=== PATIENT | female | born 1955 | race Caucasian/White ===

== ENCOUNTER 2019-05-11 09:15 | Inpatient (IN) | payer OTHER ==
[~2019-05-11 09:15] MED LIST: Lactated Ringers 1000 ML Bag* 1,000 ML IV SCH
--- OUTSIDE RECORDS SUMMARY | 2019-05-11 09:40 | XMS REPORT | Summary of Care ---
:1955 Author Organization [facility] Address [address] [place] [address] Care Team Providers Name Role Phone None, Greer Primary Care Provider Unavailable Reason for Visit Reason Comments Pre-op Exam Total left knee replacement 05/11/2019 Encounter Details Date Type Department Care Team Description 04/22/2019 Office Visit Otoniel Martinez Preop cardiovascular exam (Primary Dx); Practice DO Ron Hypothyroidism, unspecified type [address] [place] [id number] [place] [address] [phone] Allergies Active Allergy Reactions Severity Noted Date Comments Environmental Respiratory Reaction 07/26/2008 Moles, posion gurinder Latex Rash 03/15/2010 Penicillins Anaphylaxis, Hives 07/02/2008 Brinzolamide-Brimonidine Other 08/31/2014 Blurred vision/redness/ documented as of this encounter (statuses as of 04/24/2019) Medications Medication Sig Dispensed Refills Start Date End Date Status VITAMIN-B COMPLEX PO Take 1 Tab by 0 Active mouth DAILY. KAOPECTATE STOOL Take 240 mg by 0 Active SOFTENER 240 MG Oral mouth EVERY Cap BEDTIME. Multiple Take by mouth 0 Active Vitamins-Minerals (EYE EVERY THREE DAYS. VITAMINS) Oral Tab fluticasone (FLONASE) Cucumber 1 Cucumber in 1 Bottle 0 08/05/2013 Active 50 MCG/ACT Nasal nose TWICE DAILY. SuspensionIndications: Allergic sinusitis Additional information Patient taking differently: 1 Cucumber Nasal PRN, Reported on 02/09/2015 9:51 AM VITAMIN A PO Take by mouth. 0 Active latanoprost (XALATAN) Place 2 Drops to 0 10/16/2015 Active 0.005 % Ophthalmic the external eye. Solution Aspirin 81 MG Oral Tab Take 81 mg by mouth 0 Active DAILY. influenza virus vaccine Inject 0.5 mL 1 vial 0 07/29/2017 Active (FLUZONE) Intramuscular within a muscle ONE SuspensionIndications: TIME. Need for influenza vaccination influenza virus vaccine Inject 0.5 mL 1 vial 0 07/29/2017 Active (FLUZONE) Intramuscular within a muscle ONE SuspensionIndications: TIME. Need for influenza vaccination fexofenadine (OSMEL) Take 1 Tab by mouth 90 Tab 0 09/27/2017 Active 180 MG Oral DAILY. TabIndications: Allergic state, subsequent encounter Diclofenac Sodium 1 % 1 Appl by Topical 100 g 2 09/27/2017 Active Transdermal Gel route TWO TIMES DAILY NEEDED (leg pain). levothyroxine Take 1 Tab by mouth 90 Tab 1 09/27/2017 Active (SYNTHROID) 88 MCG Oral BEFORE BREAKFAST. TabIndications: Hypothyroidism, unspecified type Ezetimibe (ZETIA PO) Take 5 mg by mouth 0 Active DAILY. timolol (TIMOPTIC) 0.5 % 1 Drop TWICE DAILY. 0 Active Ophthalmic Solution benzonatate (TESSALON Take 1 Cap by mouth 42 Cap 0 02/27/2018 04/22/2019 Discontinued PERLES) 100 MG Oral THREE TIMES DAILY. CapIndications: Acute bacterial bronchitis guaiFENesin-codeine Take 10 mL by mouth 240 mL 0 02/27/2018 04/22/2019 Discontinued (ROBITUSSIN AC) 100-10 EVERY FOUR HOURS MG/5ML Oral NEEDED (at night SolutionIndications: for cough). Max Acute bacterial Daily Amount: 60 bronchitis mL. levothyroxine TAKE 1 TABLET BY 90 Tab 1 04/14/2018 04/22/2019 Discontinued (SYNTHROID\\UNITHROID) MOUTH BEFORE 100 MCG Oral BREAKFAST. TabIndications: Hypothyroidism, unspecified type documented as of this encounter (statuses as of 04/24/2019) Active Problems Problem Noted Date Neuropathy 09/29/2017 RLS (restless legs syndrome) 03/06/2017 Left leg pain 04/20/2015 Pain in joint, shoulder region 08/31/2014 Back pain 07/09/2014 Pain in joint, upper arm 06/16/2014 Neck pain on left side 05/27/2014 Pain in joint, lower leg 01/25/2014 Knee pain, left 11/05/2013 Lateral meniscus tear 11/05/2013 Chest pain, unspecified 07/27/2008 Unspecified hypothyroidism 07/02/2008 Overview: TSH 0.90 11/27/07 Glaucoma left eye 07/02/2008 Injury, other and unspecified, knee, leg, ankle, and foot 08/28/2007 Other disorder of optic nerve 02/04/2007 Pain in joint, pelvic region and thigh 05/02/2006 documented as of this encounter (statuses as of 04/24/2019) Resolved Problems Problem Noted Date Resolved Date 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 Hennsesy, Dx PE, DVT, target INR range 2.0-3.0, therapy initiated on 02/03/14, duration of therapy unknown Anticoagulant Warfarin Labs WNL Medications hydrocodone and synthroid. Referral INR range updated verbally by Dr Lowry at Pulmonary embolism on right 02/03/2014 04/24/2019 DVT (deep venous thrombosis) 02/03/2014 04/24/2019 Abdominal pain, epigastric 07/27/2008 08/05/2013 Other and unspecified noninfectious gastroenteritis and 07/27/2008 03/12/2013 colitis(558.9) Campylobacter enteritis 07/05/2008 03/12/2013 Fever, unspecified 07/02/2008 07/04/2008 Abdominal pain, unspecified site 07/02/2008 03/12/2013 Overview: Dog with dysentery Pancolitis 07/02/2008 08/05/2013 Overview: CT on 07/02/2008 Growing campylobacter Unspecified accident 08/28/2007 08/05/[address] occurrence 08/28/2007 08/05/2013 Unspecified visual loss 07/23/2006 09/29/2017 Other screening mammogram 02/24/2004 08/05/2013 documented as of this encounter (statuses as of 04/24/2019) Immunizations Name Administration Dates Next Due Influenza (IM) Preservative Free 07/29/2017, 07/27/2008 Influenza (IM) W/Pres 06/29/2014 Kenalog (80 mg) 05/04/2015 documented as of this encounter Social History Tobacco Use Types Packs/Day Years Used Date Never Smoker Smokeless Tobacco: Never Used Alcohol Use Drinks/Week oz/Week Comments Yes 0 Standard drinks or equivalent 0.0 2 glasses wine with dinner daily Sex Assigned at Date Recorded Not on file Job Start Date Occupation Industry Not on file Not on file Not on file Travel History Travel Start Travel End No recent travel history available. documented as of this encounter Last Filed Vital Signs Vital Sign Reading Time Taken Comments Blood Pressure 124/72 04/22/2019 3:21 PM EDT Pulse 66 04/22/2019 3:21 PM EDT Temperature 37.1 04/22/2019 3:21 PM C (98.7 EDT F) Respiratory Rate 16 04/22/2019 3:21 PM EDT Oxygen Saturation 97% 04/22/2019 3:21 PM EDT Inhaled Oxygen Concentration - - Weight 67.5 kg (148 lb 14.4 oz) 04/22/2019 3:21 PM EDT Height - - Body Mass Index 25.56 07/29/2017 8:55 AM EST documented in this encounter Patient Instructions Patient InstructionsOtoniel Dean DO - 04/22/2019 3:00 PM EDT- Please go to the lab on [address] for the blood work we discussed during your visit today. - I will fax your lab results, my visit note, and the EKG to Dr Hart's office once the lab valuesreturn. documented in this encounter Progress Notes Alireza Varghese DO - 04/22/2019 [facility] Supervising DO Documentation Date of Service: 04/22/2019 B# [id number] I saw and evaluated the patient. Discussed with resident and agree with the resident's findings andplan as documented in the resident's note. Here for medical clearance for knee replacement. Advised we don't do clearance but risk stratification. Decision for surgery needs to be made between the surgeon and patient. Patient higher risk forDVT/PE given prior DVT following surgery in the past. Not currently on anticoagulation. Alireza Varghese DO Supervising Physician Department of Family Medicine Otoniel Jones, DO - 04/22/2019 3:00 PM EDT PATIENT: Naomi Villeda : 1955 DATE OF SERVICE: 04/22/2019 SUBJECTIVE: Naomi Villeda is a 63-y.o. female who presents to the office today for a preoperative consultation at the request of Dr Pineda of [facility], who will perform a Total Knee Replacement on [id number]. Patient complains of cardiac symptoms: none, fatigue. Patient denies cardiac symptoms: none, fatigue. Past history of pulmonary embolism/deep vein thrombosis: Yes.- DVT leading to PE in 2013 with previous L knee surgical procedures. There is a history of bleeding complications: no Past history of anesthetic problem: no. Exercise capacity: Can you walk 2 blocks on level ground, or carry 2 bags of groceries up 2 flights of stairs? Yes- has difficulty with stairs due to knee pain. Count the number of risk factors in the revised Arroyo cardiac risk index. ( RCRI): No High risk procedure: eg vascular surgery, any open intraperitoneal or intrathoracic No History of ischemic heart disease (history of TX or a positive exercise test , current complaint of chest pain considered to be secondary to myocardial ischemia, use of nitrate therapy, or ECG with pathological Q waves; do not count prior coronary revascularization procedure unless one of the other criteria for ischemic heart disease is present) No Hx of CHF, either systolic or diastolic No History of cerebrovascular disease (TIA or Stroke) No Diabetes mellitus requiring treatment with insulin No Preoperative serum creatinine >2.0 mg/dl The risk of cardiac , nonfatal myocardial infarction, and nonfatal cardiac arrest according to the number of above risk predictors is estimated to be: No risk factors - 0.4 percent (95% CI: 0.1 - 0.8) Screening for sleep apnea: Stop-Bang Snoring: Do you snore loudly (louder than talking or heard through closed doors )? X Tired: Do you often feel tired, fatigued, or sleepy during the day? Observed: Has anyone observed you stop breathing during your sleep? Pressure: Do you have or are you being treated for high blood pressure? BMI: >35 kg/m2? X Age: >50? Neck circumference: >40 cm? Gender: Male? "Low risk" for EDEN: <3 questions "yes" Screening for Alzheimer's 1. During the past 12 months, have you experienced confusion or memory loss that is happening more often or is getting worse? No 2. During the past 7 days, did you need help with others to perform everyday activities such as eating, getting dressed, grooming, bathing, walking, or using the toilet? No 3. During the past 7 days, did you need help from others to take care of things such as laundry and housekeeping, banking, shopping, using the telephone, food preparation, transportation, or taking your own medications? No Current active problems are: Patient Active Problem List Diagnosis Date Noted Neuropathy 09/29/2017 RLS (restless legs syndrome) 03/06/2017 Left leg pain 04/20/2015 Pain in joint, shoulder region 08/31/2014 Back pain 07/09/2014 Pain in joint, upper arm 06/16/2014 Neck pain on left side 05/27/2014 Pulmonary embolism on right ([facility]) 02/03/2014 DVT (deep venous thrombosis) ([facility]) 02/03/2014 Pain in joint, lower leg 01/25/2014 Knee pain, left 11/05/2013 Lateral meniscus tear 11/05/2013 Chest pain, unspecified 07/27/2008 Unspecified hypothyroidism 07/02/2008 TSH 0.90 11/27/07 Glaucoma left eye 07/02/2008 Injury, other and unspecified, knee, leg, ankle, and foot 08/28/2007 Other disorder of optic nerve 02/04/2007 Pain in joint, pelvic region and thigh 05/02/2006 Past Medical History: Diagnosis Date Adverse exposure in workplace Closed fracture dislocation of ankle joint Disorder of function of stomach DVT (deep venous thrombosis) ([facility]) 01/2014 Foot fracture Glaucoma left eye 07/02/2008 Nulliparity Postmenopausal Unspecified hypothyroidism 07/02/2008 TSH 0.90 11/27/07 Family History Problem Relation Age of Onset Heart Father CABG x 4 High Cholesterol Father Thyroid Father Arthritis Mother Heart Mother ischemic, High Cholesterol Mother Stroke Mother Heart Brother High Cholesterol Brother Current Outpatient Medications Medication Sig Aspirin 81 MG Oral Tab Take 81 mg by mouth DAILY. benzonatate (TESSALON PERLES) 100 MG Oral Cap Take 1 Cap by mouth THREE TIMES DAILY. Diclofenac Sodium 1 % Transdermal Gel 1 Appl by Topical route TWO TIMES DAILY NEEDED (leg pain). fexofenadine (OSMEL) 180 MG Oral Tab Take 1 Tab by mouth DAILY. fluticasone (FLONASE) 50 MCG/ACT Nasal Suspension Cucumber 1 Cucumber in nose TWICE DAILY. (Patienttaking differently: Cucumber 1 Cucumber in nose NEEDED.) guaiFENesin-codeine (ROBITUSSIN AC) 100-10 MG/5ML Oral Solution Take 10 mL by mouth EVERY FOUR HOURS NEEDED (at night for cough). Max Daily Amount: 60 mL. influenza virus vaccine (FLUZONE) Intramuscular Suspension Inject 0.5 mL within a muscle ONE TIME. influenza virus vaccine (FLUZONE) Intramuscular Suspension Inject 0.5 mL within a muscle ONE TIME. KAOPECTATE STOOL SOFTENER 240 MG Oral Cap Take 240 mg by mouth EVERY BEDTIME. latanoprost (XALATAN) 0.005 % Ophthalmic Solution Place 2 Drops to the external eye. levothyroxine (SYNTHROID) 88 MCG Oral Tab Take 1 Tab by mouth BEFORE BREAKFAST. levothyroxine (SYNTHROID\\UNITHROID) 100 MCG Oral Tab TAKE 1 TABLET BY MOUTH BEFORE BREAKFAST. Multiple Vitamins-Minerals (EYE VITAMINS) Oral Tab Take by mouth EVERY THREE DAYS. VITAMIN A PO Take by mouth. VITAMIN-B COMPLEX PO Take 1 Tab by mouth DAILY. No current facility-administered medications for this visit. Allergies Allergen Reactions Environmental Respiratory Reaction Moles, posion gurinder Latex Rash Penicillins Anaphylaxis and Hives Simbrinza [Brinzolamide-Brimonidine] Other Blurred vision/redness/ Social History Socioeconomic History Marital status: Spouse name: Not on file Number of children: Not on file Years of education: Not on file Highest education level: Not on file Occupational History Not on file Social Needs Financial resource strain: Not on file Food insecurity: Worry: Not on file Inability: Not on file Transportation needs: Medical: Not on file Non-medical: Not on file Tobacco Use Smoking status: Never Smoker Smokeless tobacco: Never Used Substance and Sexual Activity Alcohol use: Yes Alcohol/week: 0.0 standard drinks Comment: 2 glasses wine with dinner daily Drug use: No Sexual activity: Yes Partners: Male Lifestyle Physical activity: Days per week: Not on file Minutes per session: Not on file Stress: Not on file Relationships Social connections: Talks on phone: Not on file Gets together: Not on file Attends yazdanism service: Not on file Active member of club or organization: Not on file Attends meetings of clubs or organizations: Not on file Relationship status: Not on file Intimate partner violence: Fear of current or ex partner: Not on file Emotionally abused: Not on file Physically abused: Not on file Forced sexual activity: Not on file Other Topics Concern Back Care Not Asked Bike Helmet Not Asked Blood Transfusions Not Asked Caffeine Concern Not Asked Exercise Not Asked Hobby Hazards Not Asked International Travel Not Asked Service Not Asked Occupational Exposure Not Asked Seat Belt Not Asked Self-Exams Not Asked Sleep Concern Not Asked Special Diet Not Asked Stress Concern Not Asked Weight Concern Not Asked Social History Narrative 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 Patient is . Husb killed in accident. 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 REVIEW OF SYSTEMS: All remaining review of systems was negative. The patient has dentures: No The last dental visit was: 2 years ago The patient has hearing aids: No Objective OBJECTIVE: [facility] 08/24/2008 GENERAL: alert, cooperative, no distress, appears stated age. SKIN: normal and no rash or abnormalities. EYES: conjunctivae/corneas clear. Pupils equal, round, reactive to light. Equal ocular movements intact. Fundi benign.. MOUTH: moist mucous membranes, no lesions. Mallampati score: 3 LYMPH NODES: cervical, nodes normal.. LUNGS: clear to auscultation bilaterally. HEART: regular rate and rhythm, S1, S2 normal, no murmur, click, rub or gallop. ABDOMEN: soft, non-tender. Bowel sounds normal. No masses, no organomegaly. FLANK TENDERNESS: absent. BREAST: Not indicated- pt without complaints to warrant exam. RECTAL: Not indicated- pt without complaints to warrant exam. EXTREMITIES: extremities normal, atraumatic, no cyanosis or edema. NEUROLOGIC: alert, oriented x3. Gait normal. Reflexes and motor strength normal and symmetric. Cranial nerves 2-12 and sensation grossly intact.. PSYCHIATRIC: non focal. ASSESSMENT: No contraindications to planned surgery Hypothyroidism Clinical predictors: The RCRI score is: 0 Respiratory risk: The patient has pre-existing risks of None The risk of airway problems is low based on the mallampati score and the Stop-bang score. Anticoagulation: The patient is on anti-platelet agents- Aspirin. Recommendations regarding stoppingthese medications before surgery: Pt has already stopped using aspirin since prior to this visit. PLAN: 1. Patient requires endocarditis prophylaxis: no. 2. Recommend perioperative beta-cody: no. 3. Patient requires perioperative deep vein thrombosis prophylaxis: yes. 4. General preoperative instructions for patient. Proceed with surgery as planned. No food or liquids the morning of surgery. Call surgeon if develop respiratory illness, fever, or other illness. Letter sent to requesting surgeon listed above. Written preoperative instructions given. Will obtain lab screening for thyroid status: TSH, FT4, BMP Patient seen and discussed with Dr. Varghese, who agreed with this assessment and plan. Duane Dean DO Family Medicine 04/22/2019 09:55 documented in this encounter Plan of Treatment Name Type Priority Associated Diagnoses Order Schedule AMBULATORY 12 LEAD EKG EKG Routine Preop cardiovascular exam Ordered: 04/22 TRACING ONLY Health Maintenance Due Date Last Done Comments MEDICARE ANNUAL WELLNESS 1955 VISIT ZOSTER IMMUNIZATION SERIES 2006 (1 of 2) MAMMOGRAM (SCREENING) 03/04/2015 03/04/2014, 2013, 01/25/2011, Additional history exists DEPRESSION SCREENING 06/01/2015 06/01/2014 PAP SMEAR 08/05/2016 08/05/2013, 10/09/2010 (Postponed), 08/18/2009, Additional history exists COLONOSCOPY SCREENING 08/26/2018 08/26/2013, 08/26/2013, 08/24/2008, Additional history exists INFLUENZA VACCINE (#1) 2019 07/29/2017, 06/29/2014, 07/27/2008 DIABETES SCREENING 04/22/2020 04/22/2019, 02/07/2017, 01/18/2016, Additional history exists LIPID DISORDER SCREENING 02/07/2022 02/07/2017, 07/31/2013, 12/13/2011, Additional history exists HEPATITIS C SCREENING Completed 02/04/2014 HPV IMMUNIZATION SERIES Aged Out No longer eligible based on patient's age to complete this topic MENINGOCOCCAL VACCINE IMM Aged Out No longer eligible based on patient's age to complete this topic PNEUMOCOCCAL 0-64 YRS Aged Out No longer eligible based on patient's age to complete this topic documented as of this encounter Implants Implanted Type Area Banquet Pilot Device Shelf Model / Serial Identifier Expiration Date / Lot Iol, [id number] 20.0 Diopter - [id number] Left: Eye STORZ 06/16/2014 [id number] -20.0D / Implanted: Qty: 1 on 03/06/2010 at [facility] [id number] / documented as of this encounter Results FREE T4 (04/22/2019 4:48 PM EDT) Free T4 1.5 0.8 - 2.2 NG/DL [facility] Specimen Blood Performing Organization Address [facility] Phone Number [facility] [address] [place] [address] THYROID STIMULATING HORMONE (04/22/2019 4:48 PM EDT) TSH 2.12 0.47 - 4.68 uIu/ml [facility] Specimen Blood Performing Organization Address [facility] Phone Number [facility] [address] [place] [address] [phone] BASIC METABOLIC PANEL (04/22/2019 4:48 PM EDT) Glucose 87 70 - 99 mg/dl [facility] BUN 10 7 - 17 mg/dl [facility] Creatinine 0.7 0.7 - 1.2 mg/dl [facility] Sodium 138 134 - 145 mmol/L [facility] Potassium 4.3 3.5 - 5.1 mmol/L [facility] Chloride 101 98 - 107 mmol/L [facility] CO2 27 22 - 30 mmol/L [facility] Calcium 9.9 8.3 - 10.1 mg/dl [facility] eGFR >60 See Interpretation [facility] Comment: Below ml/min/1.73ml [facility] Estimated GFR Interpretation: Above 60ml/min/1.73m2 = Normal Renal Function 30-59 ml/min/1.73m2 = Stage 3 Chronic Kidney Disease 15-29 ml/min/1.73m2 = Stage 4 Chronic Kidney Disease Less than 15 ml/min/1.73m2 = Stage 5 Chronic Kidney Disease The GFR value is calculated using the Modification of Diet in Renal Disease ( MDRD) Study Equation which can be found at: https://www.kidney.org/content/fpgi-kueym-uskmidtv BUN/Creatinine 14 6 - 22 RATIO [facility] Anion Gap 10 3 - 11 mmol/L [place] [employer] [place] [facility] Specimen Blood Performing Organization Address City/State/Zipcode Phone Number [place] [employer] [place] [facility] [address] [place] [address] [phone] documented in this encounter Visit Diagnoses Diagnosis Preop cardiovascular exam - Primary Pre-operative cardiovascular examination Hypothyroidism, unspecified type documented in this encounter Insurance Payer Benefit Plan / Subscriber ID Effective Dates Phone Address Type Group EXCELLUS MEDICARE EXCELLUS xxxxxxxxxxxx 2017-Present 3SP Group [employer] MEDICARE BLUE PPO [phone]) Guarantor Name Account Type Relation to Date of Phone Billing Patient Address Naomi Villeda Personal/Family 1955 [phone] [id number] [phone] [place], [place] (Work) [address] documented as of this encounter Advance Directives Code Status Date Activated Date Inactivated Comments Full Code 07/02/2008 2:18 PM 07/05/2008 4:58 PM
--- OUTSIDE RECORDS SUMMARY | 2019-05-11 09:40 | XMS REPORT | Continuity of Care Document ---
:1955 External Reference #:[id number] Author Name Michael Hart M.D. (transmitted by agent of provider Lisbet Noe) Address [address] [place] [address] [place] [address] Care Team Providers Name Role Phone Alireza Varghese MD - Family Medicine Care Team Information [employer] [phone] Problems Active Problems Provider Date Peripheral tear of lateral meniscus, current Michael Hart M.D. Onset: injury, right knee, subsequent encounter Sciatica Michael Hart M.D. Onset: 08/18/2015 Spinal stenosis of lumbar region Nic Mclaughlin M.D. Onset: 10/12/2015 Complex tear of lateral meniscus, current Michael Hart M.D. Onset: 2015 injury, right knee, subsequent encounter Chondromalacia Michael Hart M.D. Onset: 06/15/2016 Enthesopathy of knee Michael Hart M.D. Onset: 10/11/2016 [place] Michael Hart M.D. Onset: 10/11/2016 Localized, secondary osteoarthritis Michael Hart M.D. Onset: 12/25/2016 Social History Type Date Description Comments Sex Unknown ETOH Use Occasionally consumes alcohol Tobacco Use Start: Unknown Patient has never smoked Recreational Drug Use Denies Drug Use Smoking Status Reviewed: 04/21/19 Patient has never smoked Exercise Type/Frequency Exercises rarely Allergies, Adverse Reactions, Alerts Active Allergies Reaction Severity Comments Date Penicillin 06/14/2015 Latex 04/11/2016 Mole 10/11/2016 Medications Active Medications SIG Qnty Indications Ordering Provider Date Cipro 1 by mouth twice 6tabs Vane Hui, 04/30/2019 500mg Tablets a day x 3 days M.D. Voltaren apply 2 grams to 500gm Michael Hart, 08/07/2016 1% Gel affected areas M.DMayra twice a day as needed Levothyroxine Sodium 1 by mouth every Unknown day 88MCQ Tablets Latanoprost 1 drop each eye Unknown 0.005% nightly Solution Naproxen 1 tablet with Unknown 500mg Tablets food by mouth twice a day Timolol Maleate 1 drop right eye Unknown 0.5% twice a day (Daily) Solution Zetia 1/2 by mouth Unknown 10mg Tablets every day Omeprazole 1 by mouth every Unknown 40mg Capsules day DR Mohamud Allergy 1 by mouth every Unknown 60mg day Tablets Medications Administered in Office Medication SIG Qnty Indications Ordering Provider Date Depomedrol 80MG Michael Hart M.D. 07/14/2015 Injection Immunizations Description No Information Available Vital Signs Date Vital Result Comment 04/21/2019 3:48pm Height 64.5 inches 5'4.50" Weight 153.38 lb Heart Rate 65 /min BP Systolic Sitting 124 mmHg BP Diastolic Sitting 62 mmHg Respiratory Rate 16 /min Body Temperature 98.4 F Pain Level 98 BMI (Body Mass Index) 25.9 kg/m2 04/07/2019 9:40am Height 64.5 inches 5'4.50" Weight 157.00 lb Heart Rate 74 /min BP Systolic Sitting 128 mmHg BP Diastolic Sitting 84 mmHg Body Temperature 98.0 F BMI (Body Mass Index) 26.5 kg/m2 Results Test Date Facility Test Result H/L Range Note CBC Auto 04/28/2019 [facility] White Blood 4.3 10^3/uL Normal 3.5-10.[address] [place] [address] [phone] Red Blood Count 4.49 10^6/uL Normal 3.70-4.87 Hemoglobin 14.1 g/dL Normal 12.0-16.0 Hematocrit 42 % Normal 35-47 Mean Corpuscular Volume 94 fL Normal 80-97 Mean Corpuscular Hemoglobin 31 pg Normal 27-31 Mean Corpuscular HGB Conc 34 g/dL Normal 31-36 Red Cell Distribution Width 13 % Normal 10-15 Platelet Count 333 10^3/uL Normal 150-450 Mean Platelet Volume 6.8 fL Low 7.4-10.4 Abs Neutrophils 2.3 10^3/uL Normal 1.5-7.7 Abs Lymphocytes 1.4 10^3/uL Normal 1.0-4.8 Abs Monocytes 0.5 10^3/uL Normal 0-0.8 Abs Eosinophils 0.1 10^3/uL Normal 0-0.6 Abs Basophils 0.0 10^3/uL Normal 0-0.2 Abs Nucleated RBC 0.0 10^3/uL Granulocyte % 52.4 % Lymphocyte % 32.4 % Monocyte % 12.0 % Eosinophil % 2.4 % Basophil % 0.8 % Nucleated Red Blood Cells % 0.1 Inr/Protime 04/28/2019 [facility] Inr 1.00 Normal 0.82-1.[address] [place] [address] [phone] Laboratory test 04/28/2019 [facility] Partial 28.6 Normal 26.0 -38.[address] [address] Time PTT [phone] Comp Metabolic 04/28/2019 [facility] Sodium 139 mmol/L Normal 135-[address] [place] [address] [phone] Potassium 4.4 mmol/L Normal 3.5-5.0 Chloride 104 mmol/L Normal 101-111 Co2 Carbon Dioxide 29 mmol/L Normal 22-32 Anion Gap 6 mmol/L Normal 2-11 Glucose 91 mg/dL Normal 70-100 Blood Urea Nitrogen 11 mg/dL Normal 6-24 Creatinine 0.71 mg/dL Normal 0.51-0.95 BUN/Creatinine Ratio 15.5 Normal 8-20 Calcium 9.9 mg/dL Normal 8.6-10.3 Total Protein 7.1 g/dL Normal 6.4-8.9 Albumin 4.7 g/dL Normal 3.2-5.2 Globulin 2.4 g/dL Normal 2-4 Albumin/Globulin Ratio 2.0 Normal 1-3 Total Bilirubin 0.90 mg/dL Normal 0.2-1.0 Alkaline Phosphatase 43 U/L Normal 34-104 Alt 16 U/L Normal 7-52 Ast 22 U/L Normal 13-39 Egfr Non- 83.4 >60 Egfr 100.9 >60 2 Type & Screen 04/28/2019 [facility] Patient Blood Type A Negative [address] [place] [address] [phone] Antibody Screen NEGATIVE Urinalysis Profile 04/28/2019 [facility] Urine Color Yellow [address] [place] [address] [phone] Urine Appearance Clear Urine Specific [place] 1.006 Low 1.010-1.030 Urine pH 7.0 Normal 5-9 Urine Urobilinogen Negative Negative Urine Ketones Negative Negative Urine Protein Negative Negative Urine Leukocytes Trace Abnormal Negative Urine Blood 1+ Abnormal Negative Urine Nitrite Negative Negative Urine Bilirubin Negative Negative Urine Glucose Negative Negative Urine White Blood Cell Trace(0-5/hpf) Absent Urine Red Blood Cell Trace(0-2/hpf) Absent Urine Bacteria Absent Absent Urine Squamous Epithelial Cell Present Abnormal Absent Urine Culture And 04/28/2019 [facility] Urine Culture SEE RESULT [address] [place] [address] [phone] 1 Standard intensity warfarin therapeutic range: 2.0-3.0 High intensity warfarin therapeutic range: 2.5-3.5 2 Because ethnic data is not always readily available, this report includes an eGFR for both -Americans and non- Americans. The National Kidney Disease Education Program (NKDEP) does not endorse the use of the MDRD equation for patients that are not between the ages of 18 and 70, are , have extremes of body size, muscle mass, or nutritional status, or are non- or non-. According to the National Kidney Foundation, irrespective of diagnosis, the stage of the disease is based on the level of kidney function: Stage Description GFR(mL/min/1.73 m(2)) 1 Kidney damage with normal or decreased GFR 90 2 Kidney damage with mild decrease in GFR 60-89 3 Moderate decrease in GFR 30-59 4 Severe decrease in GFR 15-29 5 Kidney failure <15 (or dialysis) 3 SEE RESULT BELOW Name: DOLORES WEST : [address]: Michael Hart MD Acct: [id number] Unit: [id number] AGE: 63 Location: [facility] Re04/28/19 SEX: F Status: REG REF SPEC: [id number] MADONNA: 04/28/19-[address]: Michael Hart MD REQ: [id number] RECD: 04/28/19-1037 STATUS: COMP JENISE DR: BIRD ALAMO MD _ SOURCE: URINE SPDESC: ORDERED: Urine Culture QUERIES: Urine Source: Random Procedure Result Reported Site Urine Culture Final 04/29/19- 1207 ML No Growth (<1,000 CFU/mL) * - Main Lab . END OF REPORT DEPARTMENT OF PATHOLOGY, [address] [place] [address] Galileo Wright M.D. 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 post-traumatic AT [place] osteoarthritis of knee M79.2 Neuralgia and neuritis, unspecified Office Visit 12/04/2018 [facility] Michael Espinoza.2 Bilateral 9:30a [facility] M.[facility] post-traumatic AT [place] osteoarthritis of knee M76.32 Iliotibial band syndrome, left leg Assessments Date Code Description Provider 04/21/2019 M17.32 Unilateral post-traumatic osteoarthritis, left Michael Hart M.D. knee 04/17/2019 M17.12 Unilateral primary osteoarthritis, left knee Michael Hart M.D. 04/07/2019 M17.32 Unilateral post-traumatic osteoarthritis, left Michael Hart M.D. knee 03/10/2019 M17.2 Bilateral post-traumatic osteoarthritis of Michael Hart M.D. knee 03/10/2019 M17.32 Unilateral post-traumatic osteoarthritis, left Michael Hart M.D. knee 02/03/2019 M17.2 Bilateral post-traumatic osteoarthritis of Michael Hart M.D. knee 02/03/2019 M79.2 Neuralgia and neuritis, unspecified Michael Hart M.D. 12/04/2018 M17.2 Bilateral post-traumatic osteoarthritis of Michael Hart M.D. knee 12/04/2018 M76.32 Iliotibial band syndrome, left leg Michael Hart M.D. Plan of Treatment Future Appointment(s):05/11/2019 9:45 am - Karlo Heredia PA-C at [facility].A.05/21/2019 10:00 am - Michael Hart M.D. at [facility] AT Biycdqfv71/24/2019 10:00 am - Michael Hart M.D. at [facility] AT Kqpimsqc01/26/2019 9:45 am - Michael Hart M.D. at [facility].A.04/21/2019 - Michael Hart M.D.M17.32 Unilateral post-traumatic osteoarthritis, left kneeFollow up:Post op visits already set Functional Status Description No Information Available Mental Status Description No Information Available Referrals Description No Information Available
--- OUTSIDE RECORDS SUMMARY | 2019-05-11 09:40 | XMS REPORT | Continuity of Care Document ---
:1955 External Reference #:[id number] Author Name Skye Zhao Care Team Providers Name Role Phone Alireza Varghese MD Primary Care Physician Unavailable Payers Date Identification Numbers Payment Provider Subscriber Effective: 2017 Policy Number: [id number] [employer] Claims Naomi Ronal Onset: 2013 Group Number: [id number] [address] [id number] Group Name: Carrier #[id number] [place] [address] PayID: AIG Effective: 2016 Policy Number: [id number] [place] Claims Naomi Villeda Expires: 2018 Group Name: [phone] [address] [id number] Onset: 2013 PayID: [id number] [place] [address] Expires: 2017 Policy Number: [id number] [place] Claims Naomi Villeda Onset: 2013 Group Name: [phone] [address] [id number] PayID: [id number] [place] [address] PayID: [id number] Controverted Naomi Ronal Problems Active Problems Provider Date Peripheral tear [...] secondary osteoarthritis Michael Hart M.D. 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 twice a day as needed Levothyroxine Sodium [...] by mouth every Unknown 60mg day Tablets History Medications Cyclobenzaprine HCL take 1 tablet 60tabs M17.31 Michael Hart, 2017 - 10mg up to three M.D. 04/20/2019 Tablets times a day as needed Gabapentin one capsule PO 60caps Michael Hart, 10/01/2017 - 100mg Capsules qhs, may take M.D. 04/20/2019 second tab after dinner if no side effects Cyclobenzaprine HCL take 1 tablet 90tabs M62.831 Michael Hart, 2016 - 10mg up to three M.D. 11/05/2017 Tablets times a day as needed [place] 1-2 by mouth 40tabs S83.271D Michael Hart, 06/01/2016 - 5-325mg Tablets every 4 to 6 M.D. 11/25/2017 hours as needed Meloxicam take one 30tabs Michael Hart, 12/30/2015 - 15mg Tablets tablet by M.D. 07/02/2016 mouth every day as needed Gabapentin one capsule PO 60caps Michael Hart, 08/18/2015 - 100mg Capsules qhs, may take M.D. 12/29/2015 second tab after dinner if no side effects Gabapentin 1 by mouth 40caps Michael Hart, 07/14/2015 - 300mg Capsules every night at M.D. 08/18/2015 bedtime Tramadol HCL 1-2 tabs by 60tabs Michael Hart, 06/17/2015 - 50mg Tablets mouth q6 hours M.D. 04/10/2016 as needed pain Meloxicam 1 by mouth 60tabs Michael Hart, - 7.5mg Tablets every day, january M.D. 12/30/2015 take second tab daily Pravastatin Sodium take one Unknown - 10mg tablet by 06/16/2018 Tablets mouth at bedtime Medications Administered in Office Medication SIG Qnty Indications Ordering Provider Date Depomedrol 80MG Michael Hart M.D. 07/14/2015 Injection Vital Signs Date Vital Result Comment 04/21/2019 [...] F BMI (Body Mass Index) 26.5 kg/m2 03/10/2019 2:53pm Height 64.5 inches 5'4.50" Weight 156.50 lb Heart Rate 68 /min BP Systolic Sitting 118 mmHg BP Diastolic Sitting 92 mmHg Body Temperature 98.2 F BMI (Body Mass Index) 26.4 kg/m2 02/03/2019 9:49am Height 64.5 inches 5'4.50" Weight 151.00 lb Heart Rate 57 /min BP Systolic Sitting 110 mmHg BP Diastolic Sitting 70 mmHg Respiratory Rate 22 /min Body Temperature 97.5 F Pain Level 5 O2 % BldC Oximetry 98 % BMI (Body Mass Index) 25.5 kg/m2 12/04/2018 9:33am Height 64.5 inches 5'4.50" Weight 152.00 lb Heart Rate 76 /min BP Systolic Recheck 126 mmHg BP Diastolic Recheck 84 mmHg Respiratory Rate 16 /min Body Temperature 97.9 F BMI (Body Mass Index) 25.7 kg/m2 09/30/2018 9:37am Height 64.5 inches 5'4.50" Weight 152.00 lb Heart Rate 76 /min BP Systolic Recheck 128 mmHg BP Diastolic Recheck 84 mmHg Respiratory Rate 16 /min Body Temperature 98.6 F BMI (Body Mass Index) 25.7 kg/m2 07/17/2018 9:35am Height 64.5 inches 5'4.50" Weight 155.00 lb Heart Rate 76 /min BP Systolic Recheck 126 mmHg BP Diastolic Recheck 82 mmHg Respiratory Rate 16 /min Body Temperature 98.5 F BMI (Body Mass Index) 26.2 kg/m2 06/10/2018 9:37am Height 64.5 inches 5'4.50" Weight 154.00 lb Heart Rate 76 /min BP Systolic Recheck 122 mmHg BP Diastolic Recheck 80 mmHg Respiratory Rate 16 /min Body Temperature 98.6 F BMI (Body Mass Index) 26.0 kg/m2 04/22/2018 8:24am Height 64.5 inches 5'4.50" Weight 154.00 lb Heart Rate 76 /min BP Systolic Recheck 128 mmHg BP Diastolic Recheck 84 mmHg Respiratory Rate 16 /min Body Temperature 98.2 F BMI (Body Mass Index) 26.0 kg/m2 03/04/2018 9:09am Height 64.5 inches 5'4.50" Weight 154.00 lb Heart Rate 76 /min BP Systolic Recheck 128 mmHg BP Diastolic Recheck 84 mmHg Respiratory Rate 16 /min Body Temperature 98.6 F BMI (Body Mass Index) 26.0 kg/m2 01/21/2018 9:11am Height 64 inches 5'4" Weight 154.00 lb Heart Rate 76 /min BP Systolic Recheck 128 mmHg BP Diastolic Recheck 84 mmHg Respiratory Rate 16 /min Body Temperature 98.1 F BMI (Body Mass Index) 26.4 kg/m2 11/05/2017 3:39pm Height 64 inches 5'4" Weight 154.00 lb Heart Rate 76 /min BP Systolic Recheck 126 mmHg BP Diastolic Recheck 84 mmHg Respiratory Rate 16 /min Body Temperature 98.1 F BMI (Body Mass Index) 26.4 kg/m2 10/04/2017 10:04am Height 64 inches 5'4" Weight 156.00 lb Heart Rate 88 /min BP Systolic Recheck 128 mmHg BP Diastolic Recheck 84 mmHg Respiratory Rate 16 /min Body Temperature 98.2 F BMI (Body Mass Index) 26.8 kg/m2 10/01/2017 2:50pm Height 64 inches 5'4" Weight 156.00 lb Heart Rate 76 /min BP Systolic Recheck 130 mmHg BP Diastolic Recheck 84 mmHg Respiratory Rate 16 /min Body Temperature 98.4 F BMI (Body Mass Index) 26.8 kg/m2 07/25/2017 9:13am Height 64.5 inches 5'4.50" Weight 156.00 lb Heart Rate 76 /min BP Systolic Recheck 126 mmHg BP Diastolic Recheck 84 mmHg Respiratory Rate 16 /min Body Temperature 98.1 F BMI (Body Mass Index) 26.4 kg/m2 06/11/2017 9:41am Height 64.5 inches 5'4.50" Weight 156.00 lb Heart Rate 80 /min BP Systolic Recheck 128 mmHg BP Diastolic Recheck 84 mmHg Respiratory Rate 16 /min Body Temperature 98.2 F BMI (Body Mass Index) 26.4 kg/m2 04/16/2017 11:20am Height 64 inches 5'4" Weight 157.00 lb Heart Rate 88 /min BP Systolic Recheck 128 mmHg BP Diastolic Recheck 84 mmHg Respiratory Rate 16 /min Body Temperature 98.0 F BMI (Body Mass Index) 26.9 kg/m2 02/19/2017 11:10am Height 64.5 inches 5'4.50" Weight 157.00 lb Heart Rate 76 /min BP Systolic Recheck 126 mmHg BP Diastolic Recheck 80 mmHg Respiratory Rate 16 /min Body Temperature 98.8 F BMI (Body Mass Index) 26.5 kg/m2 12/25/2016 9:40am Height 64.5 inches 5'4.50" Weight 157.00 lb Heart Rate 76 /min BP Systolic Recheck 124 mmHg BP Diastolic Recheck 82 mmHg Respiratory Rate 16 /min Body Temperature 98.7 F BMI (Body Mass Index) 26.5 kg/m2 10/11/2016 9:42am Height 64.5 inches 5'4.50" Weight 157.00 lb Heart Rate 80 /min BP Systolic Recheck 122 mmHg BP Diastolic Recheck 84 mmHg Respiratory Rate 16 /min Body Temperature 98.1 F BMI (Body Mass Index) 26.5 kg/m2 08/07/2016 2:14pm Height 64 inches 5'4" Weight 156.00 lb BP Systolic Recheck 118 mmHg BP Diastolic Recheck 76 mmHg Respiratory Rate 16 /min Body Temperature 98.4 F BMI (Body Mass Index) 26.8 kg/m2 07/05/2016 11:15am Height 64 inches 5'4" Weight 167.00 lb Heart Rate 80 /min BP Systolic Recheck 126 mmHg BP Diastolic Recheck 82 mmHg Respiratory Rate 16 /min Body Temperature 98.1 F BMI (Body Mass Index) 28.7 kg/m2 06/15/2016 11:35am Height 64 inches 5'4" Weight 88.00 lb BP Systolic Recheck 126 mmHg BP Diastolic Recheck 80 mmHg Respiratory Rate 16 /min Body Temperature 98.3 F BMI (Body Mass Index) 15.1 kg/m2 06/01/2016 1:55pm Height 64.5 inches 5'4.50" Weight 154.00 lb Heart Rate 60 /min BP Systolic 120 mmHg BP Diastolic 88 mmHg Pain Level 0 BMI (Body Mass Index) 26.0 kg/m2 04/11/2016 8:10am Height 64.5 inches 5'4.50" Weight 157.00 lb Heart Rate 60 /min Respiratory Rate 16 /min Pain Level 5 BMI (Body Mass Index) 26.5 kg/m2 02/29/2016 11:29am Height 64.5 inches 5'4.50" Weight 157.00 lb Pain Level 5 BMI (Body Mass Index) 26.5 kg/m2 12/30/2015 3:27pm Height 64.5 inches 5'4.50" Weight 157.00 lb Respiratory Rate 16 /min Pain Level 5 BMI (Body Mass Index) 26.5 kg/m2 10/12/2015 2:17pm Height 64.5 inches 5'4.50" Weight 162.00 lb Heart Rate 78 /min BP Systolic Sitting 140 mmHg BP Diastolic Sitting 80 mmHg Pain Level 5 BMI (Body Mass Index) 27.4 kg/m2 10/05/2015 10:06am Height 64.5 inches 5'4.50" Weight 157.00 lb Pain Level 4 BMI (Body Mass Index) 26.5 kg/m2 08/18/2015 10:12am Height 64.5 inches 5'4.50" Weight 157.00 lb BMI (Body Mass Index) 26.5 kg/m2 07/14/2015 8:27am Height 64.5 inches 5'4.50" Weight 157.00 lb Pain Level 5 BMI (Body Mass Index) 26.5 kg/m2 06/14/2015 12:50pm Height 64.5 inches 5'4.50" Weight 157.00 lb Heart Rate 66 /min BP Systolic 122 mmHg BP Diastolic 78 mmHg BMI (Body Mass Index) 26.5 kg/m2 Procedures Date Code Description Status 11/05/201779999 Inject/Drain Joint/Bursa Major W/O US Completed 10/04/201730729 Inject/Drain Joint/Bursa Major W/O US Completed 12/25/2016 65197 Inject/Drain Joint/Bursa Major W/O US Completed 06/04/2016 19376 Arthroscopy,Knee,Meniscectomy Medial Or Lateral Completed 06/04/2016 10166 Arthroscopy,Knee,Meniscectomy Medial Or Lateral Completed 07/14/2015 71512 Inject/Drain Joint/Bursa Major W/O US Completed 07/14/201583703 Inject/Drain Joint/Bursa Major W/O US Completed Encounters Type Date Location Provider Dx Diagnosis Office Visit 04/07/2019 Alexis Figueroa.32 Unilateral 9:30a [facility] post-traumatic AT [place] osteoarthritis, left knee Office Visit 03/10/2019 Alexis Figueroa.2 Bilateral 2:45p [facility] post-traumatic AT [place] osteoarthritis of knee 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 post-traumatic AT [place] osteoarthritis of knee M79.2 Neuralgia and neuritis, unspecified Office Visit 12/04/2018 Orthopedic Michael M17.2 Bilateral 9:30a [facility] M.D. post-traumatic AT [place] osteoarthritis of knee M76.32 Iliotibial band syndrome, left leg Office Visit 09/30/2018 Orthopedic Michael M17.2 Bilateral 9:30a [facility] M.D. post-traumatic AT [place] osteoarthritis of knee Office Visit 07/17/2018 Orthopedic Michael M17.2 Bilateral 9:30a [facility] M.D. post-traumatic AT [place] osteoarthritis of knee Office Visit 06/10/2018 Orthopedic Michael M17.2 Bilateral 9:30a [facility] M.D. post-traumatic AT [place] osteoarthritis of knee Office Visit 04/22/2018 Orthopedic Michael Blanc7.2 Bilateral 8:15a [facility] M.D. post-traumatic AT [place] osteoarthritis of knee M70.51 Other bursitis of knee, right knee Office Visit 03/04/2018 Orthopedic Michael M17.2 Bilateral 9:00a [facility] M.D. post-traumatic AT [place] osteoarthritis of knee M62.838 Other muscle spasm Office Visit 01/21/2018 Orthopedic Michael M17.2 Bilateral 9:00a [facility] M.D. post-traumatic AT [place] osteoarthritis of knee Office Visit 11/05/2017 Orthopedic Michael M17.2 Bilateral 3:30p [facility] M.D. post-traumatic AT [place] osteoarthritis of knee M62.838 Other muscle spasm Office Visit 10/01/2017 Orthopedic Michael M17.2 Bilateral 2:30p [facility] M.D. post-traumatic AT [place] osteoarthritis of knee Office Visit 07/25/2017 Orthopedic Michael M17.2 Bilateral 9:00a [facility] M.D. post-traumatic AT [place] osteoarthritis of knee M70.51 Other bursitis of knee, right knee Office Visit 06/11/2017 Orthopedic Michael M17.2 Bilateral 9:30a [facility] M.D. post-traumatic AT [place] osteoarthritis of knee Office Visit 04/16/2017 Orthopedic Michael M17.31 Unilateral 11:15a [facility] M.D. 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 post-traumatic AT [place] osteoarthritis, right knee Office Visit 10/11/2016 Orthopedic Michael M94.261 Chondromalacia, 9:30a [facility] M.D. right knee AT [place] M70.51 Other bursitis of knee, right knee M62.831 Muscle spasm of calf Office Visit 04/11/2016 8:00a Orthopedic Michael Hart, S83.271A Complex tear [facility], [facility] current injury, right knee, init S83.271D Complex tear of lat mensc, current injury, right knee, subs Office Visit 02/29/2016 11:30a Orthopedic Michael Hart, S83.271D Complex tear [facility] of lat mensc, [facility] current injury, right knee, subs S83.271D Complex tear of lat mensc, current injury, right knee, subs M48.06 Spinal stenosis, lumbar region M48.06 Spinal stenosis, lumbar region M54.31 Sciatica, right side M54.31 Sciatica, right side M54.32 Sciatica, left side M54.32 Sciatica, left side Office Visit 12/30/2015 3:20p Orthopedic Lainey M48.06 Spinal stenosis, [facility] Del Rosario lumbar region C.M.A. M25.461 Effusion, right knee Office Visit 10/12/2015 3:00p Neurosurgery Nic Mclaughlin, M48.06 Spinal [facility] stenosis, lumbar region Office Visit 10/05/2015 9:40a Orthopedic Services Lainey M54.42 Lumbago with Of C.[facility].MAGDI Paredes sciatica, left side Office Visit 08/18/2015 10:15a Orthopedic Services Michael M54.42 Lumbago with Of Michelle Hart M.D. sciatica, left side M54.42 Lumbago with sciatica, left side Office Visit 07/14/2015 8:30a Orthopedic Michael Hart, S83.261A Prph tear of Services Y[facility] lat mensc, C.M.A. current injury, right knee, init S83.261A Prph tear of lat mensc, current injury, right knee, init M54.31 Sciatica, right side M54.31 Sciatica, right side Office Visit 06/14/2015 Orthopedic Michael M17.12 Unilateral primary 11:00a [facility] Hart osteoarthritis, left [facility]. knee M25.461 Effusion, right knee M76.31 Iliotibial band syndrome, right leg M54.31 Sciatica, right side Plan of Treatment Future Appointment(s):05/11/2019 10:00 am - Karlo Heredia PA-C at [facility]05/21/2019 10:00 am - Michael Hart M.D. at [facility] AT Frikvwft19/24/2019 10:00 am - Michael Hart M.D. at [facility] AT Vtoejaoz44/26/2019 10:00 am - Michael Hart M.D. at [facility]04/21/2019 - Mihcael Hart M.D.M17.32 Unilateral post-traumatic osteoarthritis, left kneeFollow up:Post op visits already set
--- OUTSIDE RECORDS SUMMARY | 2019-05-11 09:40 | XMS REPORT | Continuity of Care Document ---
:1955 External Reference #:[id number] Author Name Skye Zhao Care Team Providers Name Role Phone Alireza Varghese MD Primary Care Physician Unavailable Payers Date Identification Numbers Payment Provider Subscriber Effective: 2017 Policy Number: [id number] [employer] Claims Naomi Ronal Onset: 2013 Group Number: [id number] [address] [id number] Group Name: [employer] #[id number] [place] [address] PayID: AIG Effective: 2016 Policy Number: [id number] [place] Claims Naomi Villeda Expires: 2018 Group Name: [phone] [address] [address] Onset: 2013 PayID: [id number] [place] [address] Expires: 2017 Policy Number: [id number] [place] Claims Naomi Villeda Onset: 2013 Group Name: [phone] [address] [phone] PayID: [id number] [place] [address] PayID: [id number] Controverted Naomi Ronal Problems Active Problems [...] Comments Sex Unknown 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 ETOH Use Occasionally consumes alcohol Tobacco Use [...] 11/05/2017 Tablets times a day as needed [place] 1-2 by mouth 40tabs S83.271D Michael Hart, [...] 26.5 kg/m2 Procedures Date Code Description Status 11/05/201774440 Inject/Drain Joint/Bursa Major W/O US Completed 10/04/201767517 Inject/Drain Joint/Bursa Major W/O US Completed 12/25/2016 45659 Inject/Drain Joint/Bursa Major W/O US Completed 06/04/2016 27032 Arthroscopy,Knee,Meniscectomy Medial Or Lateral Completed 06/04/2016 98559 Arthroscopy,Knee,Meniscectomy Medial Or Lateral Completed 07/14/2015 93304 Inject/Drain Joint/Bursa Major W/O US Completed 07/14/201510997 Inject/Drain Joint/Bursa Major W/O US Completed Encounters [...] [facility] Hart M.D. post-traumatic AT [place] osteoarthritis of knee M79.2 Neuralgia and neuritis, unspecified Office Visit 12/04/2018 Orthopedic Michael M17.2 Bilateral 9:30a [facility] Hart M.D. post-traumatic AT [place] osteoarthritis of knee M76.32 Iliotibial band syndrome, left leg Office Visit 09/30/2018 Orthopedic Michael M17.2 Bilateral 9:30a [facility] Hart M.D. post-traumatic AT [place] osteoarthritis of knee Office Visit 07/17/2018 Orthopedic Michael M17.2 Bilateral 9:30a [facility] Hart M.D. post-traumatic AT [place] osteoarthritis of knee Office Visit 06/10/2018 Orthopedic [...] [facility] Dest[facility] Hart M.D. post-traumatic AT [place] osteoarthritis of knee Office Visit 11/05/2017 Orthopedic Michael M17.2 Bilateral 3:30p [facility] Destiny Hart M.D. post-traumatic AT [place] osteoarthritis of knee M62.838 Other muscle spasm Office Visit 10/01/2017 Orthopedic Michael M17.2 Bilateral 2:30p [facility] Dest[facility] Hart M.D. post-traumatic AT [place] osteoarthritis of knee Office Visit 07/25/2017 Orthopedic Michael M17.2 Bilateral 9:00a [facility] Dest[facility] Hart M.D. post-traumatic AT [place] osteoarthritis of knee M70.51 Other bursitis of knee, right knee Office Visit 06/11/2017 Orthopedic Michael M17.2 Bilateral 9:30a [facility] Hart M.D. post-traumatic AT [place] osteoarthritis of knee Office Visit 04/16/2017 Orthopedic Michael M17.31 Unilateral 11:15a [facility] Dest[facility] Hart M.D. 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 post-traumatic AT [place] osteoarthritis, right knee Office Visit 10/11/2016 Orthopedic Michael M94.261 Chondromalacia, 9:30a [facility] Destiny Hart M.D. right knee AT [place] M70.51 Other bursitis of knee, right knee [...] Michael Hart M.D. at [facility] AT Mmasxklg85/24/2019 10:00 am - Michael Hart M.D. at [facility] AT Egsrrird71/26/2019 10:00 am - Michael Hart M.D. at [facility]04/21/2019 - Michael Hart M.D.M17.32 Unilateral post-traumatic osteoarthritis, left kneeFollow up:Post op visits already set
[2019-05-11] MEDS ORDERED: Clindamycin 900 MG/D5W BAG(*) 900 MG/50 ML BAG IVPB ONE (10:06)
[2019-05-11] MEDS ORDERED: Buffered Lidocaine 1% SYRIN* 1 ML/SYRINGE INTRADERM ONE (10:07)
[2019-05-11] MEDS ORDERED: Midazolam* 1 MG/ML 2 ML VIAL (2 MG) ONE (10:32)
[2019-05-11] MEDS ORDERED: fentaNYL* 50 MCG/ML 2 ML VIAL (100 MCG VIAL) ONE (10:33)
[2019-05-11] MEDS ORDERED: ROPIVACAINE 5 MG/ML 30 ML BTL (0.5%) ONE (10:33)
[2019-05-11] MEDS ORDERED: Propofol* 10 MG/ML 20 ML BTL ONE (10:34)
[2019-05-11] MEDS ORDERED: Lidocaine 2% PF * 5 ML VIAL ONE ×2 (10:34→12:35)
[2019-05-11] MEDS ORDERED: Dexmedetomidine* 200 MCG/2 ML 2 ML VIAL ONE (10:34)
[2019-05-11] MEDS: Buffered Lidocaine 1% SYRIN* 1 ML/SYRINGE INTRADERM ONE (10:41)
[2019-05-11] MEDS ORDERED: ceFAZolin 2 GM in NS PREMIX(*) 2 GM/100 ML BAG IVPB ONE (11:35)
[2019-05-11] MEDS ORDERED: Bupivacaine 0.5% SDV PF* 30ML VIAL ONE (12:35)
[2019-05-11] MEDS ORDERED: KETAMINE HCL* 50 MG/ML 10 ML VIAL ONE (12:36)
[2019-05-11] MEDS ORDERED: Propofol* 500 MG/50 ML BTL ONE (12:36)
[2019-05-11] MEDS ORDERED: Bupivacaine 0.5% W/EPI SDV* 10 ML VIAL INJ ONE (12:40)
[2019-05-11] MEDS ORDERED: Dexamethasone IV* 4 MG/ML 1 ML (4 MG) ONE (13:11)
[2019-05-11] MEDS ORDERED: Ketorolac INJ* 30 MG/ML 1 ML VIAL IV PRN (14:03)
[2019-05-11] MEDS ORDERED: Acetaminophen TAB* 325 MG PO PRN (14:03)
[2019-05-11] MEDS ORDERED: HYDROmorphone INJ1* 1 MG/ML SYRINGE IV PRN (14:03)
[2019-05-11] MEDS ORDERED: Ondansetron INJ* 2 MG/ML VIAL IV PRN (14:03)
[2019-05-11] MEDS ORDERED: oxyCODONE TAB* 5 MG TAB PO PRN (14:03)
[2019-05-11] MEDS ORDERED: Naloxone* 0.4 MG/ML 1 ML VIAL IV PRN (14:03)
[2019-05-11] MEDS ORDERED: diPHENhydraMINE IV* 50 MG/ML 1 ml VIAL (BENADRYL) IV PRN (15:22)
[2019-05-11] MEDS ORDERED: Morphine INJ* 2 MG/ML 1 ML SYRINGE (TWO MG - NEW SYRINGE VERSION) IV PRN (15:22)
[2019-05-11] MEDS ORDERED: Polyethylene Glycol 3350* 17 GM PACKET PO PRN (15:22)
[2019-05-11] MEDS ORDERED: oxyCODONE/Acetamin 5/325 MG* TAB PO PRN (15:22)
[2019-05-11] MEDS ORDERED: Magnesium Hydroxide LIQ* 30 ML UDC PO PRN (15:22)
[2019-05-11] MEDS ORDERED: Bisacodyl SUPP* 10 MG SUPP PR PRN (15:22)
[2019-05-11] MEDS ORDERED: Acetaminophen TAB* 325 MG ONE (17:49)
[2019-05-11] MEDS ORDERED: Ketorolac INJ* 30 MG/ML 1 ML VIAL ONE (17:50)
--- NOTE | 2019-05-11 18:00 | OP ---
DATE OF OPERATION: 05/11/19 - ROOM #348 DATE OF : 57 SURGEON: Michael Hart MD TECHNICAL ARCHITECT: Karlo Heredia RPA ANESTHESIA: Spinal and sedation and regional. PRE-OP DIAGNOSIS: Osteoarthritis, left knee. POST-OP DIAGNOSIS: Osteoarthritis, left knee. OPERATIVE PROCEDURE: Left total knee arthroplasty. ESTIMATED BLOOD LOSS: Less than 50 cc. COMPLICATIONS: None. HARDWARE: Back and Nephew Legion 5 narrow femoral component, Kat II baseplate size 4, 32 mm patella, 9 mm PS poly; all placed with NAVIO. INDICATIONS: Ms. Villeda is a 63-year-old female who had originally injured her left knee at work. She had been treated elsewhere and underwent a knee arthroscopy and had sustained a DVT and pulmonary embolism. She presented because of bilateral knee pain. I treated her conservatively for several years for her left knee and her left knee slowly had just gotten worse. She was very concerned about any sort of additional surgery for the left because of the previous DVT. She reports though she has just been having such limitations and problems because of the knee that she realized that she needs to have something done. She also has noted that the knee has collapsed into further valgus. I discussed with her that a knee replacement would be reasonable to decrease her pain and improve her function. Risks of surgery such as a repeat DVT and pulmonary embolism, infection, scar formation, stiffness, and hardware failure were some of other risks discussed. She had been declared medically optimized and wished to proceed. DESCRIPTION OF PROCEDURE: The patient had a femoral block placed in the holding area and was brought back to the OR. Spinal anesthesia was introduced. Tourniquet was placed over the proximal left thigh and was used during the case. Total tourniquet time would be approximately 90 minutes. Left knee was prepped and then draped. Esmarch was used to exsanguinate the leg and the tourniquet was raised. Midline incision was made beginning just medial to the tibial tubercle and carried about 4 fingerbreadths above the superior pole of the patella. Incision was carried down through the skin and subcutaneous tissues. Extensor mechanism was exposed and a sharp parapatellar arthrotomy was made. Clear yellowish joint fluid gushed forward. Soft tissues were sharply elevated from the medial side of the tibia and the fat pad was sharply excised. Patella measured 22 mm in thickness and a nice 9 mm cut was taken. Patella was then easily subluxated laterally and the knee was flexed up. Nice exposure of the distal femur was obtained. Beginning with the femoral pins, outrigger for the NAVIO was placed approximately 4 fingerbreadths above the superior pole of the patella right at the very top of the quadriceps incision. Coming 4 fingerbreadths below the tibial tubercle, shelby incision was made and pin was placed and then second pin was placed. Arrays were assembled and knee was taken through range of motion. Pins were also placed for reference points for the navigation. Once all the navigation points were placed, stress range of motion was obtained as was trying to range the hip and knee. Once all the information was adequately stored in the NAVIO, we continued. Probe with the array was then used to scan the distal femur and proximal tibia and this was done until a good reapproximation of her anatomy was obtained. Then, using the program, I initially sized her for a 6, but this looked large and she was downsized to a 5. This was adjusted and rotated so that her flexion and extension gaps were nicely balanced and tibia was adjusted with this as well. Once I liked all of the alignments, distal femur was then burred and peg holes were burred as well. Femoral block was placed, and using the top hat, this was gently tapped so that I knew I had good alignment with it and was fully seated. Anterior cut was taken and I did not notch and probably could have taken an extra millimeter, but overall I was pleased with the alignment. Posterior and chamfer cuts were also taken. Attention was turned to the tibia. Drill holes were made for the tibial cutter and tibial cutter was then placed. Cutter, however, could be adjusted as there was a little bit of wobble to it, and using the top hat in the slot, cutter was pinned into place while the alignment was being held. Tibial cut was then taken. Cut was closed, but there appeared to be a little bit a skive on that medial side and then the nir was used to take that side down. Spacer block was placed, and with a 10 mm block, I liked her extension as well as flexion gap, and with the guide galen in, her alignment appeared perfect. Proximal tibia was sized and the 4 fit very nicely. Punch was then used and trial poly was then placed. With flexion and extension with the array pins in, the patella had some troubles tracking, but seemed to be alright , she did flip over. Array pins were removed and patella was sized at a 32. Holes were drilled and trial was snapped into place. Without the array pins in , she easily came out into extension, flexed nicely, and patellar tracking was perfect. Trial instrumentation was removed and knee was copiously pulse lavaged. Cement was being prepared and parts were brought onto the table. Tibia followed by femur and patella were all cemented into place. Excess cement was removed and cement was allowed to harden. Once all the cement had hardened, the knee was searched for additional cement and a few small pieces were found. Knee was again copiously pulse lavaged. She was again trialed with the 9 poly and had the same wonderful motion and stability. A 9 polyethylene was then snapped into place. Knee was again pulse lavaged and the parapatellar arthrotomy was repaired using interrupted #1 Vicryl sutures. Tourniquet was let down and no significant bleeding was encountered. Knee was again pulse lavaged and subcutaneous tissues were reapproximated using 2-0 Vicryl. Skin was closed using shaista. Sterile dressing and Cryo/Cuff were applied in the OR. The patient was then awakened and stable on transfer to the recovery room. [id number]/[facility] #: [id number] ALIN
[2019-05-11] MEDS ORDERED: HYDROmorphone INJ1* 1 MG/ML SYRINGE ONE (18:28)
[2019-05-11] MEDS: Lactated Ringers 1000 ML Bag* 1,000 ML IV SCH (20:08)
[2019-05-11] MEDS: Clindamycin 600 MG IVPREMIX(* 600 MG/50 ML SDV IV SCH (21:02)
[2019-05-11] MEDS: Ezetimibe TAB* 10 MG PO SCH (21:10)
[2019-05-11] MEDS: Docusate CAP* 100 MG PO SCH (21:10)
[2019-05-11] MEDS: oxyCODONE TAB* 5 MG TAB PO PRN (21:11)
[2019-05-11] MEDS: Magnesium Hydroxide LIQ* 30 ML UDC PO SCH (21:12)
[2019-05-11] MEDS: Timolol 0.5% OPTH.SOL* BTL BOTH EYES SCH (21:32)
[2019-05-11] MEDS: Latanoprost 0.005%* 2.5 ml BTL BOTH EYES SCH (21:33)
[2019-05-12] MEDS: Buffered Lidocaine 1% SYRIN* 1 ML/SYRINGE INTRADERM ONE (00:20)
[2019-05-12] MEDS: oxyCODONE/Acetamin 5/325 MG* TAB PO PRN ×4 (01:21→21:43)
[2019-05-12] MEDS: Clindamycin 600 MG IVPREMIX(* 600 MG/50 ML SDV IV SCH ×2 (04:24→12:32)
[2019-05-12] MEDS: oxyCODONE TAB* 5 MG TAB PO PRN ×3 (05:19→16:31)
[2019-05-12] MEDS: Levothyroxine TAB* 88 MCG TAB PO SCH (05:54)
[2019-05-12 06:14] LABS: Hematocrit 34 % (35-47); Hemoglobin 11.6 g/dL (12.0-16.0); Mean Platelet Volume 6.6 fL (7.4-10.4); Platelet Count 301 10^3/uL (150-450)
[2019-05-12 06:32] LABS: BUN/Creatinine Ratio 15.4 (8-20); Calcium 8.1 mg/dL (8.6-10.3); EGFR African American 111.8 (>60); EGFR Non-African American 92.4 (>60); Potassium 3.9 mmol/L (3.5-5.0)
[2019-05-12] MEDS: Lactated Ringers 1000 ML Bag* 1,000 ML IV SCH (06:55)
[2019-05-12] MEDS ORDERED: Heparin VIAL(*) 5000 UNITS/ML VIAL (FIVE THOUSAND) SUBCUT ONE (09:00)
[2019-05-12] MEDS: Magnesium Hydroxide LIQ* 30 ML UDC PO SCH ×2 (09:24→21:55)
[2019-05-12] MEDS: Pantoprazole TAB * 40 MG TAB PO SCH (09:24)
[2019-05-12] MEDS: Timolol 0.5% OPTH.SOL* BTL BOTH EYES SCH ×2 (09:24→21:55)
[2019-05-12] MEDS: Docusate CAP* 100 MG PO SCH ×2 (09:24→21:53)
--- NOTE | 2019-05-12 10:07 | PN ---
Progress Note - Progress Note Date of Service: 05/12/19 SOAP: Subjective: [Pt seen and examined at bedside. She feels well today. Denies any chest pain, shortness of breath, dizziness or nausea. Her left knee pain is well controlled. She has a history of DVT/PE. Objective: []Gen: NAD< sitting comfortably in a chair LLE: Left knee dressing CDI, thigh soft, DF/PF intact, DP2+, sensation intact to light touch distally. Calves supple and nontender without erythema, edema or palpable cords Assessment: []POD [address] Hart HX DVT/PE Plan: []WBAT PT/OT Heparin this morning, xarelto 10 mg qd x 30 days post op starting this afternoon. Vital Signs Temp 97.6 F 05/12/19 07:39 Pulse 55 05/12/19 07:39 Resp 20 05/12/19 09:24 BP 104/61 05/12/19 07:39 Pulse Ox 100 05/12/19 07:39 Intake & Output 05/11/19 05/12/19 05/12/19 18:59 06:59 18:59 Intake Total 1400 2930 Output Total 1450 750 100 Balance -50 2180 -100 Weight 151 lb Intake: IV Fluids 1400 980 LR 1400 980 IVPB 110 ABX - CLINDAMYCIN 110 Oral 1840 Output: Urine 100 Monique 1450 750 Laboratory Last Values Hgb 11.6 g/dL (12.0-16.0) L 05/12/19 05:54 Hct 34 % (35-47) L 05/12/19 05:54 Plt Count 301 10^3/uL (150-450) 05/12/19 05:54 MPV 6.6 fL (7.4-10.4) L 05/12/19 05:54 Sodium 136 mmol/L (135-145) 05/12/19 05:54 Potassium 3.9 mmol/L (3.5-5.0) 05/12/19 05:54 Chloride 104 mmol/L (101-111) 05/12/19 05:54 Carbon Dioxide 28 mmol/L (22-32) 05/12/19 05:54 Anion Gap 4 mmol/L (2-11) 05/12/19 05:54 BUN 10 mg/dL (6-24) 05/12/19 05:54 Creatinine 0.65 mg/dL (0.51-0.95) 05/12/19 05:54 Est GFR ( Amer) 111.8 (>60) 05/12/19 05:54 Est GFR (Non-Af Amer) 92.4 (>60) 05/12/19 05:54 BUN/Creatinine Ratio 15.4 (8-20) 05/12/19 05:54 Glucose 126 mg/dL (70-100) H 05/12/19 05:54 Calcium 8.1 mg/dL (8.6-10.3) L 05/12/19 05:54
[2019-05-12] MEDS: Ondansetron INJ* 2 MG/ML VIAL IV PRN (13:47)
[2019-05-12] MEDS ORDERED: Rivaroxaban TAB(*) 10 MG PO SCH (14:00)
--- NOTE | 2019-05-12 16:25 | CONS ---
CC: Dr. Murphy Ramos; Dr. Michael Hart * CONSULTATION REPORT: DATE OF CONSULT: 05/12/19 PRIMARY CARE PROVIDER: Dr. Murphy Ramos. REQUESTING PHYSICIAN IN CONSULTATION: Dr. Michael Hart. ATTENDING PHYSICIAN: Dr. Mary Felipe (dictated by ODILIA Tillman). REASON FOR CONSULT: Chest discomfort. HISTORY OF PRESENT ILLNESS/HOSPITAL COURSE: Ms. Villeda is a 63-year-old female with a past medical history of hyperlipidemia, history of post-operative DVT and PE, who presented to [facility] [place] [place] yesterday for an elective left total knee arthroplasty. Today, she was found to be walking in the halls with Physical Therapy when she suddenly developed chest/epigastric pain. She complained of associated nausea, lightheadedness, and palpitations. She notes this started while she was walking down the hallway. She was up to the bathroom without difficulty earlier that day. She notes that she ate lunch and approximately 20 minutes later went for a walk when these symptoms began. She notes now approximately an hour and a half later that the pain is "mellowing out." She notes that there was no diaphoresis or shortness of breath with the chest pain. She does complain of bilateral calf pain, left greater than right. She also complains of a chronic morning cough for which her ENT provider prescribed her omeprazole. She describes no change in the cough. She notes abdominal distention and pain in the left lower quadrant. She states that she is having intermittent gas pains and feels as if she is constipated. She notes her last bowel movement was yesterday. PAST MEDICAL HISTORY: 1. Hyperlipidemia. 2. Hypothyroidism. 3. GERD. 4. History of DVT, history of PE. 5. Glaucoma, bilateral. PAST SURGICAL HISTORY: Bilateral cataracts, bilateral knee surgery, neck lift. HOME MEDICATIONS: 1. Voltaren 1% gel 1 application topically b.i.d. 2. Docusate calcium 240 mg p.o. at bedtime. 3. Ezetimibe 5 mg p.o. at bedtime. 4. Fexofenadine 180 mg p.o. daily. 5. Fluticasone nasal spray 50 mcg 1 spray to both nares daily. 6. Latanoprost 0.005% one drop to both eyes at bedtime. 7. Levothyroxine 88 mcg p.o. daily. 8. Multivitamin 1 cap p.o. daily. 9. Naproxen 500 mg p.o. b.i.d. p.r.n. pain. 10. Omeprazole 40 mg p.o. daily. 11. Timolol 0.5% ophthalmic solution 1 drop to both eyes b.i.d. DRUG ALLERGIES: SIMBRINZA, LATEX, PENICILLIN, COUMADIN, PASTA/CREAMS, environmental allergies. FAMILY HISTORY: Mother has history of multiple CVAs, was on nitro at the age of 50 or 60 for angina. Father had quadruple bypass at the age of 93. No family history of cancer or diabetes mellitus. SOCIAL HISTORY: The patient denies current or former use of tobacco. She drinks approximately 2 glasses of wine per day. She does not use illicit drugs. 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 She lives in [place] with her significant other, Delroy Johnson. She was in 2009. In the event that she is unable to make her own medical decisions, she has appointed her healthcare proxy, Delroy Johnson, to be her surrogate decision maker. REVIEW OF SYSTEMS: A 10-point review of systems has been performed and all the pertinent positives and negatives are in the HPI. All other systems are negative. PHYSICAL EXAM: General: Ms. Villeda is a well-developed, well-nourished, slightly overweight, middle-aged white female, who is sitting up in bed. She appears anxious and is tearful during conversation. She has her hand resting on her epigastric area. HEENT: PERRL. EOMI. Nonicteric sclerae. Hearing is grossly intact. Oral mucous membranes are moist without lesions. The tongue is at midline. The pharynx is clear. Cardiovascular: Regular rate and rhythm with S1, S2 present without murmurs, rubs, clicks, or gallops. There is no JVD. There is no peripheral edema noted, although the left lower extremity is wrapped postoperatively from mid calf to mid thigh. Radial and pedal pulses are palpable. Pulmonary: Symmetrical chest expansion without use of accessory muscles. Lungs are clear to auscultation bilaterally without rhonchi, wheezes, or rales. There is no digital clubbing or cyanosis. Abdomen: Mildly distended. Bowel sounds is all quadrants. The abdomen is soft. There is some tenderness to palpation at the left lower quadrant. Musculoskeletal: Full range of motion in bilateral upper extremities. No pain or deformities. The right lower extremity has full range of motion and mild calf tenderness. The left lower extremity has clean, dry, and intact dressing in place with Guillermo bandage wrapped from mid thigh to mid calf. Cryo unit is in place. The patient has tenderness to palpation at the calf on the left leg. Negative Catalino 's sign bilaterally. Neuro: The patient is awake. She is alert and oriented x3 with cranial nerves grossly intact. She is able to move all of her extremities. ASSESSMENT AND PLAN: Ms. Villeda is a 63-year-old female with a past medical history of hyperlipidemia and history of deep venous thrombosis and pulmonary embolism, who is postop day 1 from left total knee arthroplasty and experienced an episode of chest/epigastric pain while walking with Physical Therapy today. The patient has been admitted inpatient for: 1. Left total knee arthroplasty. Postop day 1. Management per Ortho. 2. Chest/epigastric pain. The patient complains of pain while walking with Physical Therapy. She has associated b/l calf pain without shortness of breath. EKG was ordered and shows rate of 61, normal sinus rhythm without ST changes. We will order serial troponins x3. Currently, her chest pain is slowly resolving. Due to calf pain and chest pain, we will order ultrasound of bilateral lower extremities and a CTA of the chest. 3. Hypothyroidism. Continue levothyroxine. 4. Hyperlipidemia. Continue Zetia. 5. Gastroesophageal reflux disease. Continue omeprazole. 6. Glaucoma. Continue home eye drops. 7. DVT prophylaxis: Per Orthopedics, continue rivaroxaban. 8. Code status: Full code. TIME SPENT: Approximately 30 minutes was spent on this consultation, greater than half that time was spent [id number] with the patient and her significant other obtaining history, performing physical, and reviewing the plan of care. The case has been reviewed with my attending, Dr. Felipe, who is in agreement with the plan of care. ODILIA JULIAN [id number]/[facility] #: [id number] ALIN
[2019-05-12] MEDS ORDERED: Iohexol 350* (CONTRAST) 500 ML MDV IV ONE (17:52)
--- NOTE | 2019-05-12 20:56 | PN ---
Hospitalist Progress Note Date of Service: 05/12/19 CTA chest reveals PE. PLAN: Pulmonary embolism: -Rivaroxaban increased to 15 BID q99opqv then 20 mg PO daily and f/u with PCP.
[2019-05-12] MEDS: Ezetimibe TAB* 10 MG PO SCH (21:53)
[2019-05-12] MEDS: Rivaroxaban TAB(*) 15 MG PO SCH (21:53)
[2019-05-12] MEDS: Latanoprost 0.005%* 2.5 ml BTL BOTH EYES SCH (21:55)
[2019-05-13] MEDS: Cyclobenzaprine TAB* 10 MG PO PRN (00:06)
[2019-05-13] MEDS: Ondansetron INJ* 2 MG/ML VIAL IV PRN (00:45)
[2019-05-13] MEDS: Levothyroxine TAB* 88 MCG TAB PO SCH (05:47)
[2019-05-13] MEDS: oxyCODONE TAB* 5 MG TAB PO PRN (05:49)
[2019-05-13 06:34] LABS: Hematocrit 33 % (35-47); Hemoglobin 11.5 g/dL (12.0-16.0); Mean Platelet Volume 6.7 fL (7.4-10.4); Platelet Count 286 10^3/uL (150-450)
--- NOTE | 2019-05-13 08:01 | PN ---
Subjective Date of Service: 05/13/19 Interval History: Ms. Villeda is feeling okay this morning. She is still having significant pain which has not dropped below 6/10. Morphine was helpful with sleep last night. No further CP or heaviness, but she feels as "full" feeling below her sternum. Denies SOB, N/V. Previous DVT/PE was in 2013, provoked after knee surgery. She was on anticoagulation for 6-9 months. No concerns from nursing. Family History: Unchanged from Admission Social History: Unchanged from Admission Past Medical History: Unchanged from Admission Objective Active Medications: Acetaminophen (Tylenol Tab*) 650 mg PO Q8H PRN MILD PAIN or TEMP > 100.4 Bisacodyl (Dulcolax Supp*) 10 mg DE DAILY PRN constipation Cyclobenzaprine HCl (Flexeril Tab*) 5 mg PO TID PRN SPASMS Diphenhydramine HCl (Benadryl Iv*) 25 mg IV Q6H PRN itching Docusate Sodium (Colace Cap*) 100 mg PO BID JOSE Ezetimibe (Zetia Tab*) 5 mg PO BEDTIME JOSE Lactated Ringer's (Lactated Ringers 1000 Ml Bag*) 1,000 mls @ 100 mls/hr IV PER RATE JOSE Lactulose (Lactulose*) 30 ml PO Q6H PRN constipation Latanoprost (Xalatan 0.005%*) 1 drop BOTH EYES BEDTIME JOSE Levothyroxine Sodium (Synthroid Tab*) 88 mcg PO 0600 JOSE Magnesium Hydroxide (Milk Of Magnesia Liq*) 30 ml PO BID JOSE Magnesium Hydroxide (Milk Of Magnesia Liq*) 30 ml PO Q6H PRN constipation Morphine Sulfate (Morphine Inj (Syringe))*) 2 mg IV Q2H PRN PAIN - SEVERE Ondansetron HCl (Zofran Inj*) 4 mg IV Q6H PRN nausea Oxycodone HCl (Roxycodone Tab*) 10 mg PO Q4H PRN PAIN - SEVERE Oxycodone/Acetaminophen (Percocet 5/325 Tab*) 1 tab PO Q4H PRN PAIN - MILD Oxycodone/Acetaminophen (Percocet 5/325 Tab*) 2 tab PO Q4H PRN PAIN - SEVERE Pantoprazole Sodium (Protonix Tab*) 40 mg PO QAM JOSE Polyethylene Glycol/Electrolytes (Miralax*) 17 gm PO DAILY PRN Constipation Rivaroxaban (Xarelto(*)) 15 mg PO BID [facility] Timolol Maleate (Timoptic 0.5% Opth*) 1 drop BOTH EYES BID [facility] Vital Signs - 8 hr 05/13/19 05/13/19 05/13/19 00:06 00:18 00:45 Temperature Pulse Rate Respiratory 16 16 16 Rate Blood Pressure (mmHg) O2 Sat by Pulse Oximetry 05/13/19 05/13/19 05/13/19 02:32 03:49 03:55 Temperature 100.1 F Pulse Rate 74 Respiratory 14 17 Rate Blood Pressure 104/65 (mmHg) O2 Sat by Pulse 94 94 Oximetry 05/13/19 05/13/19 05/13/19 05:23 05:49 07:17 Temperature 99.3 F Pulse Rate 66 Respiratory 14 16 Rate Blood Pressure 129/72 (mmHg) O2 Sat by Pulse 100 100 Oximetry Appearance: Middle-aged female laying in bed in NAD Eyes: No Scleral Icterus Ears/Nose/Mouth/Throat: Mucous Membranes Moist Neck: NL Appearance and Movements; NL JVP, Trachea Midline Respiratory: Symmetrical Chest Expansion and Respiratory Effort, Clear to Auscultation Cardiovascular: NL Sounds; No Murmurs; No JVD, RRR Extremities: No Edema Neurological: Alert and Oriented x 3 Lines/Tubes/Other Access: Clean, Dry and Intact Peripheral IV Nutrition: Taking PO's Result Diagrams: 05/13/19 06:09 05/12/19 05:54 Assess/Plan/Problems-Billing Assessment: Ms. Villeda is a 63 yo F with PMH of provoked PE, HLD, hypothyroidism, and GERD; who underwent an elective L TKA on 05/11/19 and then developed chest discomfort the following day with CTA showing acute PE. - Patient Problems (1) Pulmonary embolism Code(s): I26.99 - OTHER PULMONARY EMBOLISM WITHOUT ACUTE COR PULMONALE Comment : - History of provoked PE in 2013 after knee surgery - Developed CP yesterday while working with PT - Saturating well on RA - CTA shows filling defects in the RLL consistent with PE - Continue Xarelto 15mg BID for total of 21 days, then transition to 20mg daily (2) Status post total left knee replacement Code(s): Z96.652 - PRESENCE OF LEFT ARTIFICIAL KNEE JOINT Comment: - POD #2 - Management per Ortho (3) Hyperlipidemia Code(s): E78.5 - HYPERLIPIDEMIA, UNSPECIFIED Comment: - Continue Zetia (4) GERD (gastroesophageal reflux disease) Code(s): K21.9 - GASTRO-ESOPHAGEAL REFLUX DISEASE WITHOUT ESOPHAGITIS Comment : - Continue pantoprazole (5) Hypothyroidism Code(s): E03.9 - HYPOTHYROIDISM, UNSPECIFIED Comment: - Continue levothyroxine (6) DVT prophylaxis Code(s): Z29.9 - ENCOUNTER FOR PROPHYLACTIC MEASURES, UNSPECIFIED Comment: - Xarelto (7) Full code status Code(s): Z78.9 - OTHER SPECIFIED HEALTH STATUS Comment: Status and Disposition: Dispo per Ortho. Thank you for this consultation. We will continue to follow distantly. Please call with any questions or concerns. Attending: Delvin Mullins
[2019-05-13] MEDS: Magnesium Hydroxide LIQ* 30 ML UDC PO SCH ×2 (08:11→21:36)
[2019-05-13] MEDS: Rivaroxaban TAB(*) 15 MG PO SCH ×2 (08:12→22:32)
[2019-05-13] MEDS: oxyCODONE/Acetamin 5/325 MG* TAB PO PRN ×4 (08:12→21:33)
[2019-05-13] MEDS: Pantoprazole TAB * 40 MG TAB PO SCH (08:12)
[2019-05-13] MEDS: Docusate CAP* 100 MG PO SCH ×2 (08:12→21:35)
[2019-05-13] MEDS: Timolol 0.5% OPTH.SOL* BTL BOTH EYES SCH ×2 (08:14→22:32)
--- NOTE | 2019-05-13 10:39 | PN ---
Progress Note - Progress Note Date of Service: 05/13/19 SOAP: Subjective: []Pt seen and examined at bedside. Acute PE seen on CTA. She feels well today, chest heaviness is decreased from yesterday. Denies any chest pain, shortness of breath, irregular heartbeats, dizziness, nausea, abdominal pain. She has not yet had a bowel movement though was given bowel meds this morning. Objective: [] Gen: NAD, laying comfortably in bed LLE: Left knee dressing changed and incision is CDI without erythema, thigh soft , DF/PF intact, DP2+, sensation intact to light touch distally. Calves supple and nontender without erythema, edema or palpable cords Assessment: []POD [address] Hart HX DVT/PE Acute PE Plan: []WBAT PT/OT Xarelto 15 mg BID and f/u hematology outpatient Tentative plan for DC home tomorrow Vital Signs Temp 99.3 F 05/13/19 07:17 Pulse 74 05/13/19 08:10 Resp 16 05/13/19 10:33 BP 129/72 05/13/19 07:17 Pulse Ox 94 05/13/19 08:10 Intake & Output 05/12/19 05/13/19 05/13/19 18:59 06:59 18:59 Intake Total 1785 1800 Output Total 725 1750 Balance 1060 50 Intake: IV Fluids 927 LR 927 IVPB 58 ABX - CLINDAMYCIN 58 Oral 800 1800 Output: Urine 725 1750 Other: # Bowel Movements 0 Laboratory Last Values Hgb 11.5 g/dL (12.0-16.0) L 05/13/19 06:09 Hct 33 % (35-47) L 05/13/19 06:09 Plt Count 286 10^3/uL (150-450) 05/13/19 06:09 MPV 6.7 fL (7.4-10.4) L 05/13/19 06:09 D-Dimer, Quantitative > 1050 ng/mL (Less Than 230) H 05/12/19 14:50 Sodium 136 mmol/L (135-145) 05/12/19 05:54 Potassium 3.9 mmol/L (3.5-5.0) 05/12/19 05:54 Chloride 104 mmol/L (101-111) 05/12/19 05:54 Carbon Dioxide 28 mmol/L (22-32) 05/12/19 05:54 Anion Gap 4 mmol/L (2-11) 05/12/19 05:54 BUN 10 mg/dL (6-24) 05/12/19 05:54 Creatinine 0.65 mg/dL (0.51-0.95) 05/12/19 05:54 Est GFR ( Amer) 111.8 (>60) 05/12/19 05:54 Est GFR (Non-Af Amer) 92.4 (>60) 05/12/19 05:54 BUN/Creatinine Ratio 15.4 (8-20) 05/12/19 05:54 Glucose 126 mg/dL (70-100) H 05/12/19 05:54 Calcium 8.1 mg/dL (8.6-10.3) L 05/12/19 05:54 Troponin I 0.00 ng/mL (<0.04) 05/12/19 21:48
--- NOTE | 2019-05-13 15:07 | DS ---
<Jazmine Byers Do - Last Filed: 05/15/19 10:26> Orthopedic Discharge Summary - Discharge Summary Date of Admission:05/11/19 Date of Discharge: 05/15/19 Date of Surgery: 05/11/19 Attending Orthopedic Provider: Dr. Hart Pre-operative Diagnosis: Degenerative arthritis left knee Operative Procedure: Left total knee arhtroplasty Disposition of Patient: home Condition of Patient: stable History: DOLORES WEST is a 63 year old F with years of increasingly severe left knee pain. Patient has failed conservative management and has elected to undergo a left total knee replacement Hospital Course: DOLORES was admitted to [facility] on 05/11/19. Patient underwent a left total without complication followed by a brief recovery in PACU and transfer to the Short Stay Surgical Unit in stable condition. Our hospitalist service, physical therapy and occupational therapy also participated in this patients care. Post-op day 1: patient was alert and in no acute distress. Dressing was clean, dry and intact. Operative extremity dorsiflexion and plantarflexion intact, sensation intact to light touch distally , DP2+. She complained of chest heaviness during PT and was worked up accordingly, found to have a PE. She was then started on Xarelto 15 mg PO BID. Post-op day two: dressing was changed, incision was clean, dry and intact. Patient was deemed to be medically and orthopedically stable for discharge on POD #4. Physical therapy goals were met. Home Medications Medication Instructions Recorded Confirmed Type Docusate Calcium [Stool Softener] 240 mg PO BEDTIME 06/01/16 05/11/19 History Fluticasone NASAL SPRAY 50MCG* 1 spray BOTH NARES QAM 06/01/16 05/11/19 History [Flonase NASAL SPRAY 50MCG*] Levothyroxine TAB* [Synthroid 100 88 mcg PO 0700 06/01/16 05/11/19 History MCG TAB*] Multivitamin [Multivitamins] 1 cap PO 1200 06/01/16 05/11/19 History Omeprazole CAP (NF) [Prilosec CAP* 40 mg PO QAM 06/01/16 05/11/19 History 20 MG] Diclofenac 1% GEL (NF) [Voltaren 1 applic TOPICAL BID 04/28/19 05/11/19 History 1% GEL (NF)] Ezetimibe [Zetia] 5 mg PO BEDTIME 04/28/19 05/11/19 History Fexofenadine (NF) [[place] 180 180 mg PO QAM 04/28/19 05/11/19 History (NF)] Latanoprost/Pf [Latanoprost 0.005% 1 drop BOTH EYES BEDTIME 04/28/19 05/11/19 History Eye Drop] Timolol 0.5% OPTH.EVITA* [Timoptic 1 drop BOTH EYES BID 04/28/19 05/11/19 History 0.5% Opth*] Acetaminophen TAB* [Tylenol TAB*] 650 mg PO Q8H PRN tab 05/13/19 Rx Docusate Sodium 100 mg PO Q12HR PRN #90 tablet 05/13/19 Rx Rivaroxaban TAB(*) [Xarelto 15 15 mg PO Q12H 21 Days #40 tab 05/13/19 Rx mg(*)] Docusate CAP* [Colace Cap*] 100 mg PO BID cap 05/15/19 Rx HYDROcodone/ACETAMIN 5-325 MG* 1 tab PO Q4H PRN #42 tab MDD 6 05/15/19 Rx [Gibbs 5-325 TAB*] <Melissa Noland M - Last Filed: 05/19/19 14:29> Orthopedic Discharge Summary - Discharge Summary Date of Admission:05/11/19 Date of Discharge: 05/14/19 Date of Surgery: 05/11/19 Attending Orthopedic Provider: Dr Hart Pre-operative Diagnosis: left knee osteoarthritis Operative Procedure: left total knee replacement Disposition of Patient: home Condition of Patient: stable History: DOLORES WEST is a 63 year old F with years of increasingly severe left knee pain. Patient has failed conservative management and has elected to undergo a left total knee replacement Hospital Course: DOLORES was admitted to [facility] on 05/11/19. Patient underwent a left total knee replacement without complication followed by a brief recovery in PACU and transfer to the Short Stay Surgical Unit in stable condition. Our hospitalist service, physical therapy also participated in this patients care. Post-op day 1: patient was alert and in no acute distress. Dressing was clean, dry and intact. Operative extremity dorsiflexion and plantarflexion intact, sensation intact to light touch distally, DP2+. During PT she report chest heaviness, she was discovered to have a PE and she was started on xarelto 15 mg BID. Post-op day two: dressing was changed, incision was clean, dry and intact. Chest heaviness had improved and vital signs remained stable. Post op day 3 patient feels well, dressing changed and incision CDI. She has met PT goals and is ready for DC home. Home Medications Medication Instructions Recorded Confirmed Type Docusate Calcium [Stool Softener] 240 mg PO BEDTIME 06/01/16 05/11/19 History Fluticasone NASAL SPRAY 50MCG* 1 spray BOTH NARES QAM 06/01/16 05/11/19 History [Flonase NASAL SPRAY 50MCG*] Levothyroxine TAB* [Synthroid 100 88 mcg PO 0700 06/01/16 05/11/19 History MCG TAB*] Multivitamin [Multivitamins] 1 cap PO 1200 06/01/16 05/11/19 History Omeprazole CAP (NF) [Prilosec CAP* 40 mg PO QAM 06/01/16 05/11/19 History 20 MG] Diclofenac 1% GEL (NF) [Voltaren 1 applic TOPICAL BID 04/28/19 05/11/19 History 1% GEL (NF)] Ezetimibe [Zetia] 5 mg PO BEDTIME 04/28/19 05/11/19 History Fexofenadine (NF) [[place] 180 180 mg PO QAM 04/28/19 05/11/19 History (NF)] Latanoprost/Pf [Latanoprost 0.005% 1 drop BOTH EYES BEDTIME 04/28/19 05/11/19 History Eye Drop] Timolol 0.5% OPTH.EVITA* [Timoptic 1 drop BOTH EYES BID 04/28/19 05/11/19 History 0.5% Opth*] Acetaminophen TAB* [Tylenol TAB*] 650 mg PO Q8H PRN tab 05/13/19 Rx Docusate CAP* [Colace Cap*] 100 mg PO BID PRN #90 cap 05/13/19 Rx Rivaroxaban TAB(*) [Xarelto 15 15 mg PO BID #40 tab 05/13/19 Rx mg(*)] oxyCODONE/Acetamin 5/325 MG* 1 tab PO Q4H PRN tab MDD 10 05/13/19 Rx [Percocet 5/325 TAB*] oxyCODONE/Acetamin 5/325 MG* 2 tab PO Q4H PRN #70 tab MDD 05/13/19 Rx [Percocet 5/325 TAB*] Discharge Instructions following Orthopedic Surgery: Activity: * Weight Bearing as tolerated * Continue physical therapy and occupational therapy exercises as shown * Continue home PT Wound care: * OK to shower on post-op day 3, no bathing, swimming, or submerging wound. * Use gentle soap, pat dry. Cover with gauze, BJORN wrap or tape. * Visiting home nurse to do wound checks. Staple removal in 2 weeks. Call Orthopedic office for: * Increased drainage * Redness * Increased pain * Fever Go to ER with shortness of breath or chest pain. Diet: * Regular diet * Increase fluids and fiber to prevent constipation. * Continue to use stool softeners, call office if no bowel motion within 48 hours. Medications See Home Medication List in your packet for medications that you should take after discharge. DVT Prophylaxis: This medication increases bleeding tendency Xarelto Dosing: Continue Xarelto 15mg every 12 hours for total of 21 days, then transition to 20mg daily. continue taking until follow up with hematology where you will receive new instruction regarding treatment and prevention of blood clots. Please follow up with your PCP within 1 week post op to ensure adequate time to arrange this appointment. Pain Control: Percocet Dosin/325 mg 1-2 tabs by mouth every 4-6 hours as needed for pain. Maximum of 10 tabs per day. Wean off as soon as pain allows. Hold for sedation. Please note that Percocet contains Tylenol (acetaminophen). Maximum daily dose of Tylenol is 4000 mg from all sources. Antibiotics are required prior to any dental work. FOLLOW UP: Follow up with [Hailey] in 4 weeks, call for appointment Please call our office with any questions or concerns ([phone])
[2019-05-13] MEDS: Ezetimibe TAB* 10 MG PO SCH (21:35)
[2019-05-13] MEDS: Latanoprost 0.005%* 2.5 ml BTL BOTH EYES SCH (22:32)
[2019-05-14] MEDS: Cyclobenzaprine TAB* 10 MG PO PRN (00:03)
[2019-05-14] MEDS: oxyCODONE TAB* 5 MG TAB PO PRN (00:04)
[2019-05-14] MEDS: Levothyroxine TAB* 88 MCG TAB PO SCH (05:07)
[2019-05-14] MEDS: oxyCODONE/Acetamin 5/325 MG* TAB PO PRN ×2 (05:07→09:22)
[2019-05-14 06:50] LABS: Hematocrit 36 % (35-47); Hemoglobin 12.6 g/dL (12.0-16.0); Mean Platelet Volume 6.6 fL (7.4-10.4); Platelet Count 300 10^3/uL (150-450)
[2019-05-14] MEDS: Magnesium Hydroxide LIQ* 30 ML UDC PO SCH ×2 (08:32→21:19)
[2019-05-14] MEDS: Timolol 0.5% OPTH.SOL* BTL BOTH EYES SCH ×2 (08:36→20:53)
[2019-05-14] MEDS: Rivaroxaban TAB(*) 15 MG PO SCH ×2 (08:36→20:53)
[2019-05-14] MEDS: Docusate CAP* 100 MG PO SCH ×2 (08:36→21:19)
[2019-05-14] MEDS: Pantoprazole TAB * 40 MG TAB PO SCH (08:36)
--- NOTE | 2019-05-14 12:55 | PN ---
Progress Note - Progress Note Date of Service: 05/14/19 SOAP: Subjective: []Pt seen and examined at bedside. Her pain is well controlled. Denies CP, SOB, dizziness or nausea. Promotes still feeling mild heaviness in the epigastric region. Feels "fuzzy" today though not confused. Objective: [] Gen: NAD, A&Ox3, sitting comfortably in a chair. LLE: Left knee dressing changed and incision is CDI without erythema, thigh soft , DF/PF intact, DP2+, sensation intact to light touch distally. Calves supple and nontender without erythema, edema or palpable cords Assessment: []POD [address] Hart HX DVT/PE Acute PE Plan: []WBAT PT/OT Xarelto 15 mg BID and f/u hematology outpatient Decrease narcotics, Tentative plan for DC home today Vital Signs Temp 98.2 F 05/14/19 11:44 Pulse 61 05/14/19 11:44 Resp 16 05/14/19 11:53 BP 100/60 05/14/19 11:53 Pulse Ox 92 05/14/19 11:44 Intake & Output 05/13/19 05/14/19 05/14/19 18:59 06:59 18:59 Intake Total 1190 1688 600 Output Total 750 0 Balance 440 1688 600 Intake: Oral 1190 1688 600 Output: Urine 750 0 Other: Estimated Void Large Large Large Date of Last Bowel 05/14/19 Movement # Bowel Movements 1 1 Estimated Stool Amount Large Medium # Voids 1 1 1 Laboratory Last Values Hgb 12.6 g/dL (12.0-16.0) 05/14/19 06:08 Hct 36 % (35-47) 05/14/19 06:08 Plt Count 300 10^3/uL (150-450) 05/14/19 06:08 MPV 6.6 fL (7.4-10.4) L 05/14/19 06:08 D-Dimer, Quantitative > 1050 ng/mL (Less Than 230) H 05/12/19 14:50 Sodium 136 mmol/L (135-145) 05/12/19 05:54 Potassium 3.9 mmol/L (3.5-5.0) 05/12/19 05:54 Chloride 104 mmol/L (101-111) 05/12/19 05:54 Carbon Dioxide 28 mmol/L (22-32) 05/12/19 05:54 Anion Gap 4 mmol/L (2-11) 05/12/19 05:54 BUN 10 mg/dL (6-24) 05/12/19 05:54 Creatinine 0.65 mg/dL (0.51-0.95) 05/12/19 05:54 Est GFR ( Amer) 111.8 (>60) 05/12/19 05:54 Est GFR (Non-Af Amer) 92.4 (>60) 05/12/19 05:54 BUN/Creatinine Ratio 15.4 (8-20) 05/12/19 05:54 Glucose 126 mg/dL (70-100) H 05/12/19 05:54 Calcium 8.1 mg/dL (8.6-10.3) L 05/12/19 05:54 Troponin I 0.00 ng/mL (<0.04) 05/12/19 21:48
[2019-05-14] MEDS: Acetaminophen TAB* 325 MG PO PRN ×2 (15:55→23:45)
[2019-05-14] MEDS ORDERED: oxyCODONE TAB* 5 MG TAB PO PRN (17:08)
[2019-05-14] MEDS ORDERED: Ibuprofen TAB* 800 MG PO PRN (17:12)
[2019-05-14] MEDS ORDERED: Ibuprofen TAB* 400 MG PO PRN (17:14)
--- NOTE | 2019-05-14 17:20 | PN ---
Subjective Date of Service: 05/14/19 Interval History: Patient c/o dizziness to nursing and orthopedic team. Tells me she feels sometimes lightheaded but also states "if I close my eyes for a few minutes, I have squiggles in my eyes after I open them." She additionally reports headache on the back of her head that spreads across from behind each ear. She has chest pressure with deep inspiration which has been improving. Denies difficulty breathing, fever/chills, abd pain. Family History: Unchanged from Admission Social History: Unchanged from Admission Past Medical History: Unchanged from Admission Objective Active Medications: Acetaminophen (Tylenol Tab*) 650 mg PO Q8H PRN PRN Reason: MILD PAIN or TEMP > 100.4 Last Admin: 05/14/19 15:55 Dose: 650 mg Hydrocodone Bitart/Acetaminophen ([place] 5-325 Tab*) 1 tab PO Q4H PRN PRN Reason: PAIN - MODERATE Bisacodyl (Dulcolax Supp*) 10 mg OR DAILY PRN PRN Reason: constipation Cyclobenzaprine HCl (Flexeril Tab*) 5 mg PO TID PRN PRN Reason: SPASMS Last Admin: 05/14/19 00:03 Dose: 5 mg Diphenhydramine HCl (Benadryl Iv*) 25 mg IV Q6H PRN PRN Reason: itching Docusate Sodium (Colace Cap*) 100 mg PO BID [facility] Last Admin: 05/14/19 08:36 Dose: 100 mg Ezetimibe (Zetia Tab*) 5 mg PO BEDTIME [facility] Last Admin: 05/13/19 21:35 Dose: 5 mg Lactated Ringer's (Lactated Ringers 1000 Ml Bag*) 1,000 mls @ 100 mls/hr IV PER RATE [facility] Last Admin: 05/12/19 06:55 Dose: 100 mls/hr Ibuprofen (Motrin Tab*) 400 mg PO Q8H PRN PRN Reason: PAIN - MODERATE Lactulose (Lactulose*) 30 ml PO Q6H PRN PRN Reason: constipation Latanoprost (Xalatan 0.005%*) 1 drop BOTH EYES BEDTIME [facility] Last Admin: 05/13/19 22:32 Dose: 1 drop Levothyroxine Sodium (Synthroid Tab*) 88 mcg PO 0600 [facility] Last Admin: 05/14/19 05:07 Dose: 88 mcg Magnesium Hydroxide (Milk Of Magnesia Liq*) 30 ml PO BID [facility] Last Admin: 05/14/19 08:32 Dose: Not Given Magnesium Hydroxide (Milk Of Magnesia Liq*) 30 ml PO Q6H PRN PRN Reason: constipation Morphine Sulfate (Morphine Inj (Syringe))*) 2 mg IV Q2H PRN PRN Reason: PAIN - SEVERE Last Admin: 05/13/19 00:45 Dose: 2 mg Ondansetron HCl (Zofran Inj*) 4 mg IV Q6H PRN PRN Reason: nausea Last Admin: 05/13/19 00:45 Dose: 4 mg Oxycodone HCl (Roxycodone Tab*) 5 mg PO Q4H PRN PRN Reason: PAIN - SEVERE Pantoprazole Sodium (Protonix Tab*) 40 mg PO QAM [facility] Last Admin: 05/14/19 08:36 Dose: 40 mg Polyethylene Glycol/Electrolytes (Miralax*) 17 gm PO DAILY PRN PRN Reason: Constipation Rivaroxaban (Xarelto(*)) 15 mg PO BID [facility] Last Admin: 05/14/19 08:36 Dose: 15 mg Timolol Maleate (Timoptic 0.5% Opth*) 1 drop BOTH EYES BID [facility] Last Admin: 05/14/19 08:36 Dose: 1 drop Vital Signs - 8 hr 05/14/19 05/14/19 05/14/19 09:22 11:20 11:44 Temperature 98.2 F Pulse Rate 61 Respiratory 18 18 16 Rate Blood Pressure 84/55 (mmHg) O2 Sat by Pulse 92 Oximetry 05/14/19 05/14/19 05/14/19 11:53 13:07 15:36 Temperature 98.5 F Pulse Rate 68 Respiratory 16 16 Rate Blood Pressure 100/60 108/70 101/63 (mmHg) O2 Sat by Pulse 96 Oximetry 05/14/19 05/14/19 05/14/19 15:37 15:39 15:42 Temperature Pulse Rate 71 75 Respiratory 18 Rate Blood Pressure 111/76 118/75 (mmHg) O2 Sat by Pulse 99 Oximetry 05/14/19 16:00 Temperature Pulse Rate Respiratory Rate Blood Pressure (mmHg) O2 Sat by Pulse 99 Oximetry Oxygen Devices in Use Now: None Appearance: Thin, white female laying upright in recliner, appearing in NAD, at bedside Eyes: No Scleral Icterus, PERRLA, - - visual saucedo full to confrontation, no nystagmus Ears/Nose/Mouth/Throat: Mucous Membranes Moist Neck: NL Appearance and Movements; NL JVP, - - tenderness to palpation of paraspinal muscles at base of skull Respiratory: Symmetrical Chest Expansion and Respiratory Effort, Clear to Auscultation Cardiovascular: NL Sounds; No Murmurs; No JVD, RRR Abdominal: - - abd soft, nontender, nondistended Extremities: No Edema, No Clubbing, Cyanosis Skin: No Rash or Ulcers Neurological: Alert and Oriented x 3, NL Muscle Strength and Tone Result Diagrams: 05/14/19 06:08 05/12/19 05:54 Assess/Plan/Problems-Billing Assessment: Ms. Villeda is a 63 yo F with PMH of provoked PE, HLD, hypothyroidism, and GERD; who underwent an elective L TKA on 05/11/19 and then developed chest discomfort the following day with CTA showing acute PE. - Patient Problems (1) Dizziness Current Visit: Yes Status: Acute Code(s): R42 - DIZZINESS AND GIDDINESS SNOMED Code(s): 728880515 Comment: -Patient describes lightheadedness at rest as well as a headache -patient is not orthostatic -I believe this is attributable to the headache, which I believe is secondary to muscle tension in the neck -continue prn tylenol, ordered warm pack to neck (2) Pulmonary embolism Current Visit: Yes Status: Acute Code(s): I26.99 - OTHER PULMONARY EMBOLISM WITHOUT ACUTE COR PULMONALE SNOMED Code(s): 58970734 Comment: - History of provoked PE in 2014 after knee surgery - Developed chest pain while working with physical therapy - CTA shows filling defects in the RLL consistent with PE - Continue Xarelto 15mg BID for total of 21 days, then transition to 20mg daily - Good oxygen saturation, chest pain with deep inspiration improving (3) GERD (gastroesophageal reflux disease) Current Visit: Yes Status: Acute Code(s): K21.9 - GASTRO-ESOPHAGEAL REFLUX DISEASE WITHOUT ESOPHAGITIS SNOMED Code(s): 506357534 Comment: - Continue pantoprazole (4) Hypothyroidism Current Visit: Yes Status: Acute Code(s): E03.9 - HYPOTHYROIDISM, UNSPECIFIED SNOMED Code(s): 78465926 Comment: - Continue levothyroxine (5) Status post total left knee replacement Current Visit: Yes Status: Acute Code(s): Z96.652 - PRESENCE OF LEFT ARTIFICIAL KNEE JOINT SNOMED Code(s): 0155318035361 Comment: - POD #2 - Management per Ortho (6) Hyperlipidemia Current Visit: Yes Status: Acute Code(s): E78.5 - HYPERLIPIDEMIA, UNSPECIFIED SNOMED Code(s): 90078132 Comment: - Continue Zetia (7) DVT prophylaxis Current Visit: Yes Status: Acute Code(s): Z29.9 - ENCOUNTER FOR PROPHYLACTIC MEASURES, UNSPECIFIED SNOMED Code(s): 033355720 Comment: - Xarelto (8) Full code status Current Visit: Yes Status: Acute Code(s): Z78.9 - OTHER SPECIFIED HEALTH STATUS SNOMED Code(s): 197706936 Comment: Status and Disposition: Dispo per Ortho.
[2019-05-14] MEDS: Ezetimibe TAB* 10 MG PO SCH (20:53)
[2019-05-14] MEDS: Latanoprost 0.005%* 2.5 ml BTL BOTH EYES SCH (20:53)
[2019-05-15] MEDS: HYDROcodone/ACETAMIN 5-325 MG* 1 TAB PO PRN ×3 (02:08→10:05)
[2019-05-15 05:21] LABS: Hematocrit 32 % (35-47); Hemoglobin 10.9 g/dL (12.0-16.0); Mean Platelet Volume 6.6 fL (7.4-10.4); Platelet Count 280 10^3/uL (150-450)
[2019-05-15] MEDS: Levothyroxine TAB* 88 MCG TAB PO SCH (06:07)
[2019-05-15] MEDS: Magnesium Hydroxide LIQ* 30 ML UDC PO SCH (07:20)
[2019-05-15] MEDS: Pantoprazole TAB * 40 MG TAB PO SCH (10:04)
[2019-05-15] MEDS: Timolol 0.5% OPTH.SOL* BTL BOTH EYES SCH (10:05)
[2019-05-15] MEDS: Rivaroxaban TAB(*) 15 MG PO SCH (10:05)
[2019-05-15] MEDS: Docusate CAP* 100 MG PO SCH (10:05)
[2019-05-15 11:20] VITALS: BP 134/83
== END 2019-05-15 12:55 | disposition home health service (06) | DRG 302 ==
LOC: AA 09:36 → SSU 19:02
PROVIDERS: ADMIT Orthopaedic Surgery; ATTEND Orthopaedic Surgery
PROC: 8E0YXBZ Computer Assisted Procedure of Lower Extremity (ICD-10-PCS; 2019-05-11)
PROC: 0SRD0J9 Replacement of Left Knee Joint with Synthetic Substitute, Cemented, Open Approach (ICD-10-PCS; principal; 2019-05-11 11:15)
DX: M17.32 Unilateral post-traumatic osteoarthritis, left knee (principal); I26.99 Other pulmonary embolism without acute cor pulmonale; H40.9 Unspecified glaucoma; E03.9 Hypothyroidism, unspecified; R42 Dizziness and giddiness; K21.9 Gastro-esophageal reflux disease without esophagitis; R51 Headache; E78.5 Hyperlipidemia, unspecified; Z86.711 Personal history of pulmonary embolism; Z86.718 Personal history of other venous thrombosis and embolism; Z79.899 Other long term (current) drug therapy; Z79.01 Long term (current) use of anticoagulants; Z88.0 Allergy status to penicillin; Z91.040 Latex allergy status; Z91.048 Other nonmedicinal substance allergy status; Z82.49 Family history of ischemic heart disease and other diseases of the circulatory system; Z82.3 Family history of stroke; Z83.49 Family history of other endocrine, nutritional and metabolic diseases; Z82.61 Family history of arthritis; Z98.42 Cataract extraction status, left eye; Z98.41 Cataract extraction status, right eye; Z91.018 Allergy to other foods
CPT/HCPCS: 36415; 71275; 80048; 84484; 85014; 85018; 85049; 85379; 88305; 88311; 93005; 93970; A9270-GY; C1776; J0690; J1100; J1170; J1644; J1885; J2250; J2270; J2405; J2704; J2795; J3010; J3490; Q9967